=== PATIENT | male | born 1990 | race Caucasian/White ===

== ENCOUNTER 2019-05-17 11:03 | Emergency (ER) | payer OTHER, SELFPAY ==
--- NOTE | ~2019-05-17 | XR_ITS ---
EXAMINATION: XR chest 2V 05/17/2019 11:41 INDICATION: Cough with wheezing and fever PROCEDURE: 2 view chest COMPARISON: No prior studies for comparison. FINDINGS: The lungs are clear. The cardiomediastinal silhouette is within normal limits. There are no pleural effusions. There is no pneumothorax suspected. IMPRESSION: 1: NO ACUTE CARDIOPULMONARY DISEASE. Reviewed, dictated and finalized at location A. [employer]
[2019-05-17 11:13] VITALS: BP 125/76; PULSE 70; RESP 18; TEMP 37.4; O2SAT 98
--- NOTE | 2019-05-17 11:31 | ED.URI ---
HPI - URI/Sore Throat General Chief Complaint: Upper Respiratory Infection Stated Complaint: nausea/cough/sore throat/fever Time Seen by Provider: 05/17/19 11:24 Source: patient and RN notes reviewed Mode of arrival: ambulatory Limitations: no limitations History of Present Illness HPI Narrative: Patient presents today with a 2-day history of cough, wheezing, headache, congestion, fever up to 103. He had diarrhea for the first 2 days of his illness, but none since yesterday. Denies abdominal pain. Patient vomited 3 times this morning after drinking water. He has been taking NyQuil and Sudafed. Reports history of asthma as a child. Stopped vaping 2 weeks ago. MD elicited complaint: fever, cough and nasal congestion Related Data Allergies Allergy/AdvReac Type Severity Reaction Status Date / Time No Known Allergies Allergy Verified 05/17/19 11:05 Review of Systems Review of Systems: Narrative: CONSTITUTIONAL: Denies body aches, chills, or sweats.+ Fever EYES: Denies visual changes, redness, or discharge. ENT: Denies rhinorrhea, sore throat, or otalgia.+ Congestion CARDIOVASCULAR: Denies chest pain, palpitations, or edema. RESPIRATORY: Denies dyspnea.+ Cough, wheezing GASTROINTESTINAL: Denies abdominal pain, nausea. + Vomiting, diarrhea right GENITOURINARY: Denies dysuria or hematuria. SKIN: Denies rash, itching, or wounds. MUSCULOSKELETAL: Denies back pain, joint pain, or myalgia. NEUROLOGIC: Denies numbness, tingling, or weakness.+ Headache PSYCH: Denies depression or anxiety. PENDING SALE TO [facility] Social History Social History (Updated 05/17/19 @ 11:34 by Sirisha Nunez, [facility], ) Smoking status: Former smoker Tobacco type: e-cigarettes Gender identity (if verbalized by the patient): Male Comments At time of signature, I have reviewed and agree with nursing past medical, surgical, social and family history unless otherwise noted. Please see nursing chart for further information. There is no relevant family history pertinent to the presenting complaint Exam Narrative: Exam Narrative: GENERAL: Well-appearing, well-nourished, and in no acute distress. HEAD: Normocephalic, atraumatic. EYES: EOMI. No redness or drainage. Conjunctivae normal. ENT: Mucous membranes pink and moist. Nares clear. No rhinorrhea. TMs normal bilaterally. Throat normal. Uvula midline. NECK: Normal AROM. Supple. No lymphadenopathy. CHEST: No respiratory distress. Wheezing in the right upper and lower lobes, otherwise clear HEART: Regular rate and rhythm. No murmur appreciated. Normal peripheral pulses. ABDOMEN: Soft, nontender, nondistended, normal active bowel sounds. MUSCULOSKELETAL: No bony tenderness. EXTREMITIES: Normal range of motion. No edema. SKIN: Warm, dry, no rash. Generalized skin pallor NEURO: No focal deficits. Alert and oriented x3. Gait steady. PSYCH: Normal affect. No signs of depression or anxiety. Course Vital Signs Vital signs: Vital Signs Temperature 99.3 F 05/17/19 11:13 Pulse Rate 70 05/17/19 11:13 Respiratory Rate 18 05/17/19 11:13 Blood Pressure 125/76 05/17/19 11:13 Pulse Oximetry 98 05/17/19 11:13 Temperature 99.3 F 05/17/19 11:13 Pulse Rate 70 05/17/19 11:13 Respiratory Rate 18 05/17/19 11:13 Blood Pressure 125/76 05/17/19 11:13 Pulse Oximetry 98 05/17/19 11:13 Reviewed. Pt has been instructed to follow up with his PCP regarding his elevated blood pressure today. MDM - URI/Sore Throat Differential Diagnosis Differential diagnosis: Likely upper respiratory infection, otitis media, sinusitis, viral infection, bronchitis and other (Pneumonia) Lab Data Attestation: I reviewed the patient's lab results. Labs: Influenza A Screen Negative Reference Range: Negative Influenza B Screen Positive Reference Range: Negative Imaging Data Radiologist's impression: ITS Impressions Chest X-Ray 05/17/19 11:43 IMPRESSION:
== END 2019-05-17 12:13 | disposition home or self-care (01) ==
PROVIDERS: Emergency Provider Nurse Practitioner
DX: J11.1 Influenza due to unidentified influenza virus with other respiratory manifestations (principal)
CPT/HCPCS: 71046; 87804; 99213; G0463

== ENCOUNTER 2020-10-08 10:09 | Emergency (ER) | payer OTHER, SELFPAY ==
[2020-10-08 10:23] VITALS: BP 136/80; PULSE 65; RESP 18; TEMP 36.6; O2SAT 98
--- NOTE | 2020-10-08 10:30 | ED.SKABFB ---
HPI - Skin/Abscess/Foreign Bdy General Chief complaint: Skin/Abscess/Foreign Body Stated complaint: insect bites Time Seen by Provider: 10/08/20 10:31 Source: patient History of Present Illness HPI narrative: PATIENT STARTED A NEW JOB AND HAS STARTED TO WEAR UNIFORMS PROVIDED BY HIS EMPLOYER. PATIENT HAS BROKEN OUT IN A RASH IN AREAS WHERE HIS UNIFORM TOUCHES HIS SKIN. PATIENT REPORTS ITCHY RASH TO NECK BOTH ARMS AND ABDOMEN AREA UMBILICAL AREA VERY IRRITATED. HAS SPREAD TO HIS FOREHEAD NO RESP PROBLEMS. Related Data Allergies Allergy/AdvReac Type Severity Reaction Status Date / Time No Known Allergies Allergy Verified 05/17/19 11:05 Review of Systems Review of Systems: Narrative: CONSTITUTIONAL: Denies fever, chills, or sweats. EYES: Denies visual changes, redness, or discharge. ENT: Denies rhinorrhea, congestion, sore throat, or otalgia. CARDIOVASCULAR: Denies chest pain, palpitations, or edema. RESPIRATORY: Denies cough or dyspnea. GASTROINTESTINAL: Denies abdominal pain, nausea, vomiting, or diarrhea. GENITOURINARY: Denies dysuria or hematuria. SKIN:ITCHY RASH MUSCULOSKELETAL: Denies back pain, joint pain, or myalgia. NEUROLOGIC: Denies headache, numbness, or weakness. PSYCHIATRIC: Denies anxiety or depression. [facility] Social History Social History (Updated 05/17/19 @ 11:34 by Sirisha Nunez, [facility], ) Smoking status: Former smoker Tobacco type: e-cigarettes/vaping Gender identity (if verbalized by the patient): Male Comments At time of signature, agree with nursing past medical, surgical, social and family history. There is no relevant family history pertinent to the presenting complaint Exam Narrative: Exam Narrative: GENERAL: Well-appearing, well-nourished, and in no acute distress. HEAD: Normocephalic, atraumatic. EYES: PERRLA and EOMI. ENT: Nares clear, no rhinorrhea or epistaxis. Mucous membranes moist. NECK: Supple. CHEST: Clear to auscultation. No respiratory distress. HEART: Regular rate and rhythm. No murmur heard. Normal peripheral pulses. ABDOMEN: Soft, nontender, nondistended, normal active bowel sounds. EXTREMITIES: Normal range of motion. No edema. SKIN: Warm, dry, Contact dermatitis No induration fluctuance or drainage. No surrounding erythremia. No lesions and TTP. No specific pattern or dermatomal distribution. Several different stages with occasional scabbing and excoriation. Spares palms and soles. Findings consistent with contact dermatitis. NEURO: No focal deficits. Alert and oriented x3. Jonel Coma Scale Eye Opening: Spontaneous 4 Jonel Coma Scale Motor: Obeys Commands 6 Jonel Coma Scale Verbal: Oriented 5 [place] Coma Scale Total 15 Course Vital Signs Vital signs: Vital Signs Temperature 36.6 C 10/08/20 10:23 Pulse Rate 65 10/08/20 10:23 Respiratory Rate 18 10/08/20 10:23 Blood Pressure 136/80 10/08/20 10:23 Pulse Oximetry 98 10/08/20 10:23 Temperature 36.6 C 10/08/20 10:23 Pulse Rate 65 10/08/20 10:23 Respiratory Rate 18 10/08/20 10:23 Blood Pressure 136/80 10/08/20 10:23 Pulse Oximetry 98 10/08/20 10:23 Critical dx considered and discussed with pt. Educated patient on red flag s/s and to go to ED if s/s occur. Discussed with pt when to return to [facility] or primary care provider. Pt gave verbal undertstanding, all questions were answered, and pt was agreeable to plan Please GASTON schedule a followup visit with your personal physician for further evaluation and treatment. Including recheck and discussion of your blood pressure. If your symptoms persist, change or worsen significantly before you can contact your personal physician then please, without delay, go to the emergency department for further evaluation DISCUSSED EVALUATION AND TEST RESULTS IN THE [facility]. PATIENT/FAMILY UNDERSTAND IMPORTANCE OF CLOSE OBSERVATION AND RETURNING OR GOING TO THE EMERGENCY ROOM IF ANY WORSENING CONDITION. . MDM - Skin/Abscess
[2020-10-08] MEDS: methylPREDNISolone SOD SUCC 125 MG VIAL IM (10:40)
== END 2020-10-08 10:55 | disposition home or self-care (01) ==
PROVIDERS: Emergency Provider Nurse Practitioner Family; PCP Family Medicine Sports Medicine
DX: L25.9 Unspecified contact dermatitis, unspecified cause (principal)
CPT/HCPCS: 96372; 99213; G0463; J2930

== ENCOUNTER 2020-11-21 10:55 | Emergency (ER) | payer BC, OTHER, SELFPAY ==
[2020-11-21 11:08] VITALS: BP 137/76; PULSE 68; RESP 16; TEMP 36.8; O2SAT 100
--- NOTE | 2020-11-21 11:25 | ED.SKABFB ---
HPI - Skin/Abscess/Foreign Bdy General Chief complaint: Skin/Abscess/Foreign Body Stated complaint: rash Time Seen by Provider: 11/21/20 11:02 Source: patient and RN notes reviewed Limitations: no limitations History of Present Illness HPI narrative: The patient, previously mostly healthy, presents with skin eruption. Patient states he is here for second visit for skin eruption which is pink, raised, on his left upper extremity and now beginning to extend to his trunk and left lateral nose. He usually treat for contact dermatitis with mupirocin, antihistamines and a course of prednisone-he comments mupirocin is not working. No fever, abscess/induration, pimples Related Data Home Medications Medication Instructions Recorded Confirmed albuterol sulfate [Ventolin HFA] 2 puff INHALATION PRN PRN 10/08/20 11/21/20 fluticasone propionate [Flovent 2 puff INHALATION DAILY 10/08/20 11/21/20 HFA] montelukast 10 mg PO DAILY 10/08/20 11/21/20 Allergies Allergy/AdvReac Type Severity Reaction Status Date / Time No Known Allergies Allergy Verified 11/21/20 11:02 Review of Systems Review of Systems: General/Constitutional: No weight loss,fever Eyes: N0: Redness,discharge Ears/Nose/Throat: No: Epistaxis,ear discharge Respiratory: Denies: Hemoptysis Gastrointestinal: No Vomiting, Bleeding-rectal Skin: No Lumps, REPORTS eruption Neurologic: No Focal Weakness,Sz Hematologic: Denies: Petechiae/Purpura Psychiatric: No: Suicida ideationl All Other Systems: Reviewed and Negative PMFSH Social History Social History (Updated 05/17/19 @ 11:34 by Sirisha Nunez, [facility], ) Smoking status: Former smoker Tobacco type: e-cigarettes/vaping Gender identity (if verbalized by the patient): Male Comments At time of signature, agree with nursing past medical, surgical, social and family history. There is no relevant family history pertinent to the presenting complaint Exam Narrative: General Appearance: Well nourished; with garcia, earrings and pajama pants Eye: PERRLA, Conjunctiva clear Ear: External ear normal Nose: Normal nose, Nare clear, mild left infectious versus allergic periorbital edema Mouth/Throat: Normal appearing Neck Exam: Supple Respiratory: Airway patent, No respiratory distress Musculoskeletal: Moves all extremities, Non tender Skin: Warm, Dry ; macular micropapular blanching impetiginous eruption on the left elbow, trunk and face Neurological: A&O x3, Normal affect Course Vital Signs Vital signs: Vital Signs Temperature 98.3 F 11/21/20 11:08 Pulse Rate 68 11/21/20 11:08 Respiratory Rate 16 11/21/20 11:08 Blood Pressure 137/76 11/21/20 11:08 Pulse Oximetry 100 11/21/20 11:08 Temperature 98.3 F 11/21/20 11:08 Pulse Rate 68 11/21/20 11:08 Respiratory Rate 16 11/21/20 11:08 Blood Pressure 137/76 11/21/20 11:08 Pulse Oximetry 100 11/21/20 11:08 Discharge Plan Discharge Clinical Impression: Impetigo Patient Disposition: Home, Self-Care Condition: Stable Instructions: Impetigo (ED) Additional Instructions: Take clindamycin with food, antacid and/or probiotic; stop if diarrhea occurs Keep photo log of area; return if worsens per handout Prescriptions: New clindamycin HCl 300 mg capsule 300 mg PO TID Qty: 21 RF: 0 mupirocin 2 % ointment 1 applic TOPICAL TID Qty: 30 RF: 0 albuterol sulfate [Ventolin HFA] 90 mcg/actuation HFA aerosol inhaler 2 puff INHALATION QID PRN (Reason: shortness of breath or wheezing) Qty: 8.5 RF: 1 No Action Zyrtec 10 mg capsule 10 mg PO DAILY Qty: 14 RF: 0 montelukast 10 mg tablet 10 mg PO DAILY RF: 0 albuterol sulfate [Ventolin HFA] 90 mcg/actuation HFA aerosol inhaler 2 puff INHALATION PRN PRN (Reason: Shortness Of Breath Or Wheezing) RF: 0 Flovent HFA 110 mcg/actuation HFA aerosol inhaler 2 puff INHALATION DAILY RF: 0 Follow-up/Referrals: Rodger,Wu Escalante MD
== END 2020-11-21 11:32 | disposition home or self-care (01) ==
PROVIDERS: Emergency Provider Emergency Medicine; PCP Family Medicine Sports Medicine
DX: L01.00 Impetigo, unspecified (principal); Z87.891 Personal history of nicotine dependence
CPT/HCPCS: 99213; G0463

== ENCOUNTER 2021-03-31 10:30 | Emergency (ER) | payer OTHER, SELFPAY ==
[2021-03-31 10:55] VITALS: BP 133/93; PULSE 90; RESP 16; TEMP 37.4; O2SAT 98
[2021-03-31 10:56] VITALS: BP 133/93; PULSE 90; RESP 16; TEMP 37.4; O2SAT 98
--- NOTE | 2021-03-31 11:05 | ED.NAVMDI ---
HPI - Nausea/Vomiting/Diarrhea General Chief complaint: Nausea/Vomiting/Diarrhea Stated complaint: Nausea,Vomiting Time Seen by Provider: 03/31/21 11:05 Source: patient, RN notes reviewed and old records reviewed Mode of arrival: ambulatory Limitations: no limitations History of Present Illness HPI Narrative: 31-year-old male presents to the [facility] with complaints of vomiting for 3 days. States whenever he eats he vomits however denies any abdominal pain. Denies any fevers, chest pain, abdominal pain. First day he vomited twice. Has one time today. MD elicited complaint: vomiting Related Data Home Medications Medication Instructions Recorded Confirmed albuterol sulfate [Ventolin HFA] 2 puff INHALATION PRN PRN 10/08/20 03/31/21 fluticasone propionate [Flovent 2 puff INHALATION DAILY 10/08/20 03/31/21 HFA] Allergies Allergy/AdvReac Type Severity Reaction Status Date / Time No Known Allergies Allergy Verified 03/31/21 10:55 Review of Systems Review of Systems: All systems reviewed & are unremarkable except as noted in HPI and below Constitutional: Constitutional: Reports no additional constitutional complaints, Denies chills and Denies fever(s) Eyes: Eyes: Reports no additional eye complaints ENT: Reports system reviewed and no additional complaints, except as documented Cardiovascular: Cardiovascular: Reports no additional cardiovascular complaints Respiratory: Respiratory: Reports no additional respiratory complaints and Denies cough Gastrointestinal: Gastrointestinal: Reports as per HPI, Denies abdominal pain, Denies bloating, Denies constipation, Denies heartburn, Denies diarrhea, Reports nausea, Reports vomiting and Denies hematemesis Genitourinary: Genitourinary: Reports no additional male genitourinary complaints Musculoskeletal: Musculoskeletal: Reports no additional musculoskeletal complaints Integumentary/Breasts: Skin/Breast: Reports system reviewed and no additional complaints, except as docu Neurologic: Reports system reviewed and no additional complaints, except as documented Psychiatric: Psychiatric: Reports no additional psychiatric complaints Allergic/Immunologic: Allergic/Immunologic: Reports no additional allergic/immunologic complaints PMFSH Past Medical History Medical History (Updated 03/31/21 @ 11:17 by Maryjane Hernandez) Asthma Surgical History Surgical History (Updated 03/31/21 @ 11:12 by Maryjane Hernandez) No significant past surgical history Social History Social History (Updated 03/31/21 @ 11:12 by Maryjane Mantilla Smoking status: Current every day smoker Tobacco type: cigarettes and e-cigarettes/vaping Occupation/Education: occupation 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 There is no relevant family history pertinent to the patient complaint. Exam Const: General: healthy appearing, no acute distress and alert Nutritional Appearance: well nourished Orientation/consciousness: patient oriented x3 Limitations: no limitations HENMT: Head: normal to inspection Ears: external ears normal, TM's normal bilaterally and Abnormal EAC present Eyes: Pupils: Equal, round and reactive pupils present Neck: Neck: normal visual inspection, no lymphadenopathy and no meningeal signs Chest: Chest palpation & inspection: normal inspection of the chest Resp: Effort & Inspection: normal respiratory effort Auscultation: clear to auscultation bilaterally Cardio: Rate: regular rate Rhythm: regular rhythm GI: GI Palp: Yes Soft to palpation, No Tenderness to palpation present (GI), No Guarding due to palpation present (GI) and No Rigid due to palpation Percussion: Yes normal to percussion Auscultation: normal bowel sounds Back/Spine/Pelvis: Back: no CVA tenderness
== END 2021-03-31 11:18 | disposition home or self-care (01) ==
PROVIDERS: Emergency Provider Nurse Practitioner; PCP Family Medicine Sports Medicine
DX: K52.9 Noninfective gastroenteritis and colitis, unspecified (principal); J45.909 Unspecified asthma, uncomplicated; F17.210 Nicotine dependence, cigarettes, uncomplicated
CPT/HCPCS: 99213; G0463

== ENCOUNTER 2024-06-29 17:45 | Emergency (ER) | payer OTHER, SELFPAY ==
--- NOTE | 2024-06-29 17:56 | ED.WOUNDLAC ---
HPI - Wound/Laceration General Chief Complaint: Wound/Laceration Stated Complaint: RT Thumb Injury Time Seen by Provider: 06/29/24 18:00 Source: patient, RN notes reviewed and old records reviewed Mode of arrival: ambulatory Limitations: no limitations History of Present Illness HPI narrative: 34-year-old male presents to the [facility] with a laceration to the base of the right thumb. Sliced with a piece of sheet metal. Related Data Home Medications ?Medication ?Instructions ?Recorded ?Confirmed ?Last Taken ?Type albuterol sulfate 90 mcg/actuation 2 puff inhalation PRN PRN 10/08/20 03/31/21 Unknown History aerosol inhaler (Ventolin HFA) Shortness Of Breath Or Wheezing fluticasone propionate 110 2 puff inhalation DAILY 10/08/20 03/31/21 Unknown History mcg/actuation HFA aerosol inhaler (Flovent HFA) Allergies Allergy/AdvReac Type Severity Reaction Status Date / Time No Known Allergies Allergy Verified 06/29/24 17:49 Review of Systems Review of Systems: All systems reviewed & are unremarkable except as noted in HPI and below Constitutional: Constitutional: Reports no additional constitutional complaints ENT: Reports system reviewed and no additional complaints, except as documented Cardiovascular: Cardiovascular: Reports no additional cardiovascular complaints, Denies chest pain and Denies dyspnea Respiratory: Respiratory: Reports no additional respiratory complaints, Denies chest congestion, Denies cough and Denies dyspnea Musculoskeletal: Musculoskeletal: Reports no additional musculoskeletal complaints Integumentary/Breasts: Skin/Breast: Reports as per HPI REPLACED BY [facility] Past Medical History Medical History Asthma Surgical History Surgical History No significant past surgical history Social History Social History Smoking status: Current every day smoker Tobacco type: cigarettes and e-cigarettes/vaping Occupation/Education: occupation 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 There is no relevant family history pertinent to the patient complaint. Exam Const: General: cooperative, healthy appearing, comfortable, no acute distress, well developed, alert and well nourished Nutritional Appearance: well nourished Orientation/consciousness: patient oriented x3 Limitations: no limitations HENMT: Head: normal to inspection Eyes: General: appearance normal, both eyes and all related structures Alignment and Position: alignment normal Neck: Neck: normal visual inspection, full ROM, no lymphadenopathy and no meningeal signs Chest: Chest palpation & inspection: normal inspection of the chest Resp: Effort & Inspection: normal respiratory effort and able to speak in complete sentences Cardio: Rate: regular rate Skin: General skin exam: normal color and no rashes or lesions noted Wounds: wounds noted (Right thumb, flap of skin) Neuro: General: patient oriented x3, gait normal, moves all extremities and no meningeal signs Cognition (Neuro): normal cognition Speech: normal speech Gait exam (Neuro): Normal gait present Extrem: General: normal to inspection, full ROM, capillary refill normal and normal gait Hand/finger images:  1. Flap of skin, semi circular, full range of motion of the IP and MCP. Sensation intact and capillary refill under 2 seconds Psych: Appearance: grossly normal and well kempt Mental Status: mental status grossly normal Speech and movement: Normal speech and movement present and Clear speech present Affect: normal affect Attitude: cooperative Course Course Level of Care: [facility] Visit Vital Signs Vital signs: Vital Signs Temperature 98.0 F 06/29/24 17:58 Pulse Rate 85 06/29/24 17:58 Respiratory Rate 18 06/29/24 17:58 Blood Pressure 146/83 H 06/29/24 17:58 Pulse Oximetry 100 06/29/24 17:58 Oxygen Delivery Room Air 06/29/24 17:58 Temperature 98.0 F 06/29/24 17:58 Pulse Rate 85 06/29/24 17:58 Respiratory Rate 18 06/29/24 17:58 Blood Pressure 146/83 H 06/29/24 17:58 Pulse Oximetry 100 06/29/24 17:58 Oxygen Delivery Room Air 06/29/24 17:58 Reviewed Procedures Laceration Laceration 1: Date: 06/29/24 Time: 18:15 Site: hand Side (If applicable): right Size (cm): 2 Description: flap Depth: simple, single layer Local Anesthetic: lidocaine 1% Amount of anesthesia used (mL): 5 Pre-repair: wound explored and irrigated (200) ====== Skin Level ====== Skin layer closed with: nylon Size (cm): 5-0 Number of sutures: 5 Technique: simple, interrupted ====== Subcutaneous Layer ====== ====== Muscle Layer ====== ====== Tendon Layer ====== MDM - Wound/Laceration MDM Narrative Medical decision making narrative: Patient presents with a laceration to the right thumb. Bleeding is controlled. Updated tetanus. Patient thumb repaired 5 sutures placed Patient appropriate for outpatient treatment and follow-up Discharge instructions reviewed with patient, as well as provided in writing per nursing staff. The instructions also include specific and strict return/GO TO THE ER as well as f/u information. All questions have been answered, and the patient deny any further questions with discharge and discharge plan. Some parts of this dictation were generated by voice recognition software and may contain typographical and/or grammatical inaccuracies. Differential Diagnosis Differential diagnosis: Likely laceration, abrasion and avulsion of skin Critical Care Time Critical Care Time Critical Care Time: No Discharge Plan Discharge Clinical Impression: Laceration of thumb, Vaccine for [id number], combined Patient Disposition: Home, Self-Care Condition: Stable Instructions: Antibiotic Form, Finger Laceration (ED) Additional Instructions: Wash 2 to 3 times a day with warm soapy water, pat dry. Please keep covered when not at home. Try leaving open to air when at home for minimum of 4-5 hours per day. Take Tylenol per package instructions as needed for pain. It is recommended you start taking today Apply ice every 2-3 hours for 15-20 minutes while awake Follow-up with primary care provider in approximately 14 days for suture remove Patient Language: Belarusian Prescriptions: No Action Zyrtec 10 mg capsule 10 mg PO DAILY Qty: 14 0RF albuterol sulfate [Ventolin HFA] 90 mcg/actuation HFA aerosol inhaler 2 puff INHALATION PRN PRN (Reason: Shortness Of Breath Or Wheezing) Flovent HFA 110 mcg/actuation HFA aerosol inhaler 2 puff INHALATION DAILY ondansetron 4 mg tablet,disintegrating 4 mg PO Q8H PRN (Reason: nausea and vomiting) Qty: 10 0RF Follow-up/Referrals: Rodger,Wu Escalante MD [Primary Care Provider] [facility] pressure check 146/83, suture removed) Stand Alone Forms: Work/School Release IP Time of Disposition: 18:28
[2024-06-29 17:58] VITALS: BP 146/83; PULSE 85; RESP 18; TEMP 36.7; O2SAT 100
[2024-06-29] MEDS: TETANUS,DIPHTHERIA,AC PERTUSSIS ADULT (0.5 ML) BOOSTRIX IM (18:10)
--- OUTSIDE RECORDS SUMMARY | 2024-06-29 19:06 | XMS_ITS | Clinical Summary ---
Author Organization [facility] Address [address] [place] [address] Care Team Providers Care Marketing Operations Consultant Name Role Phone Wu Soares MD Primary Care Provider Allergies Active Allergy Reactions Criticality Noted Date Comments [place] Swelling 05/10/2022 Medications albuterol (PROVENTIL) (2.5 MG/3ML) 0.083% nebulizer solutionIndication s:Mild persistent asthma without complication (HHS/HCC) INHALE 3 ML BY NEBULIZATION EVERY 6 HOURS NEEDED FOR WHEEZING OR SHORTNESS OF BREATH 300 mL 1 04/29/19 25 Active albuterol sulfate HFA 108 (90 Base) MCG/ACT inhalerIndications :Mild persistent asthma without complication (HHS/HCC) TAKE 2 PUFFS BY MOUTH EVERY 6 HOURS NEEDED FOR WHEEZE OR SHORTNESS OF BREATH 18 g 2 05/26/19 25 Active budesonide-formote rol (SYMBICORT) 160-4.5 MCG/ACT inhalerIndications :Mild persistent asthma without complication (HHS/HCC) Inhale 2 puffs into the lungs 2 (two) times daily. 10.2 g 1 05/26/19 25 Active ondansetron (ZOFRAN-ODT) 4 MG disintegrating tablet Take 1 tablet (4 mg total) by mouth every 8 (eight) hours as needed for Nausea. 20 tablet 06/20/19 25 Active Active Problems Problem Noted Date Diagnosed Date Mild persistent asthma without complication (HHS /HCC) 07/28/2020 Seasonal allergies 07/28/2020 Encounters Date Type Department Care Team Description 06/19/2024 9:30 AM MANAGER SOLAR - 06/19/2024 1:53 PM [facility] Emergency [facility] Emergency Room [id number] [place] [address] [id number] Gregory Reveles MD Abdominal Pain Discharge Disposition: Home or Self Care (Routine Discharge) 06/19/2024 Travel 06/16/2024 3:40 PM MANAGER SOLAR Office Visit [facility] Medicine [address] [phone] Wu Soares MD Follow Up; Asthma; Breathing Problem (Pt states it hurts when he takes deep breath ); Chest Pain (Pt states he gets chest pain right under her ribs ) 06/16/2024 Travel 05/26/2024 9:20 AM MANAGER SOLAR Office Visit [facility] Internal [address] [phone] Franklin Biswas MD Asthma (Follow up out of inhaler and having SOB has albuterol lois pt has asthma) 05/26/2024 Travel from Last 3 Months Immunizations Name Administration Dates Next Due Tdap (Adacel) 09/24/2016 Family History Medical History Relation Comments Cancer Father Heart Attack Maternal Grandfather Heart Disease Maternal Grandfather Lung Disease Paternal Grandfather Relation Status Comments Father Alive Maternal Grandfather Maternal Grandmother Alive Mother Alive Paternal Grandfather Paternal Grandmother Social History Tobacco Use Types Packs/Day Years Used Date Smoking Tobacco: Former Smokeless Tobacco: Never Tobacco Cessation:Counseling Given: No Alcohol Use Standard Drinks/Week Comments Yes 0 (1 standard drink = 0.6 oz pur e alcohol) socially PHQ-2 Answer Date Recorded Patient Health Questionnaire-2 Score 0 05/26/2024 Sex and Gender Information Value Date Recorded Sex Assigned at Male 05/26/2024 9:20 AM MANAGER SOLAR Legal Sex Male 7:46 PM CDT Gender Identity Male 05/26/2024 9:31 AM MANAGER SOLAR Sexual Orientation Straight 05/26/2024 9: 31 AM MANAGER SOLAR Last Filed Vital Signs Vital Sign Reading Time Taken Comments Blood Pressure 119/72 06/19/2024 11:30 AM MANAGER SOLAR Pulse 56 06/19/2024 11:30 AM MANAGER SOLAR Temperature 37.2 C (98.9 F) 06/19/2024 9:45 AM MANAGER SOLAR Respiratory Rate 18 06/19/2024 11:30 AM MANAGER SOLAR Oxygen Saturation 97% 06/19/2024 11:30 AM MANAGER SOLAR Inhaled Oxygen Concentration - - Weight 92.1 kg (203 lb) 06/19/2024 9:44 AM MANAGER SOLAR Height 188 cm (6' 2 ) 06/19/2024 9:44 AM MANAGER SOLAR Body Mass Index 26.06 06/19/2024 9:44 AM MANAGER SOLAR Plan of Treatment Upcoming Encounters Date Type Department Care Team (Late st Contact Info) Description 07/02/2024 2:40 PM CDT Office Visit [facility] [address] [place] [address] Wu Soares MD [address] [place] [address] 12/17/2024 3:40 PM CDT Office Visit [facility] [id number] [place] [phone] Wu Soares MD [address] [place] [address] Health Maintenance Due Date Last Done Comments Pneumococcal Vaccine: Pediat rics (0 to 5 Years) and At-Risk Patients (6 to 64 Years) (1 of 2 - PCV) 1994 Hepatitis C 2006 Hepatitis B Vaccines (1 of 3 - 19+ 3-dose series) 2007 Annual Physical 04/28/2021 04/28/2020 COVID-19 Vaccine ( - 2023-2 5 season) 2025 Postponed from 12/14 (Patient Refused) Influenza Adult (#1) 2025 Postpon ed from 01/14/2024 (Patient Refused) DTaP, Tdap and Td Vaccines ( 2 - Td or Tdap) 09/24/2026 09/24/2016 PHQ-2 (Physician [place]) Completed 05/26/2024 HPV Vaccines Aged Out No longer eligi ble based on patient's age to complete this topic Meningococcal B Vaccine Aged Out No l onger eligible based on patient's age to complete this topic Meningococcal Vaccine Aged Out No norma jareth eligible based on patient's age to complete this topic RSV Immunizations Under 20 Months Aged Out No longer eligible based on patient's age to complete this topic Procedures Procedure Name Priority Date/Time Associated Diagnosis Comments US ABD LIMITED STAT 06/19/2024 12:[address] ABD+PEL W CON STAT 06/19/2024 10:5 1 AM MANAGER SOLAR XR CHEST PORTABLE STAT 06/19/2024 10: 50 AM MANAGER SOLAR LIPASE STAT 06/19/2024 9:51 AM MANAGER SOLAR TROPONIN, QUANT STAT 06/19/2024 9:51 AM MANAGER SOLAR COMPREHENSIVE METABOLIC PANEL STAT 06/19/2024 9:51 AM MANAGER SOLAR CBC W/DIFF AUTOMATED STAT 06/19/2024 9:51 AM MANAGER SOLAR ECG 12-LEAD Routine 06/19/2024 9:46 AM MANAGER SOLAR from Last 3 Months Results * US ABD LIMITED (06/19/2024 12:46 PM MANAGER SOLAR) Anatomical Region Laterality Modality Abdomen Ultrasound 06/19/2024 12:5 5 PM MANAGER SOLAR Impressions 06/19/2024 1:03 PM MANAGER SOLAR IMPRESSION: 1. No sonographic abnormality observed within the right upper quadrant. Referred By: Interpreted By: Rajani Lynn DO, 06/19/2024 12:55 PM Narrative 06/19/2024 1:03 PM MANAGER SOLAR [facility] [address] [place] [address] EXAMINATION: LIMITED ABDOMINAL ULTRASOUND: RIGHT UPPER QUADRANT. CLINICAL INDICATION: 34-year-old male. Reason for examination: Right upper quadrant pain. The patient reports right upper quadrant pain times several months with nausea vomiting and diarrhea. TECHNIQUE: Ultrasound examination of the right upper quadrant was performed to assess grayscale appearance, color flow characteristics and spectral Doppler analysis. COMPARISON: No previous right upper quadrant ultrasound. Contrast-enhanced CT abdomen and pelvis today at 10:44 FINDINGS: Liver: Normal echogenicity. No intrahepatic ductal dilatation. No intrahepatic masses. The liver measures within normal limits of size at 16.4 cm. Pancreas: The visualized portion of the pancreas was unremarkable Portal vein: Spectral analysis reveals normal hepatopedal flow. Hepatic veins and IVC normal antegrade flow and waveform and velocity. Gallbladder: No gallbladder wall thickening measured at 3 mm. The gallbladder is within normal limits of size measuring 7.2 x 2.3 x 3.0 cm. No gallstones or sludge. No pericholecystic fluid. Negative sonographic Gregorio sign. Distal common bile duct: 2.9 mm. No distinct intraluminal stone. Common hepatic duct: Not visualized due to overlying bowel gas. Right kidney: Measures 11.2 x 4.6 x 5.5 cm. Normal echogenicity. Normal cortical perfusion. Normal cortical width measured at 1.5 cm. No masses or cysts or stones or hydronephrosis. Other findings: No ascites in the right upper quadrant. Procedure Note Rajani Lynn MD - 06/19/2024 [facility] [address] [facility]. [place] [id number] EXAMINATION: LIMITED ABDOMINAL ULTRASOUND: RIGHT UPPER QUADRANT. CLINICAL INDICATION: 34-year-old male. Reason for examination: Right upper quadrant pain. The patient reports right upper quadrant pain times several months withnausea vomiting and diarrhea. TECHNIQUE: Ultrasound examination of the right upper quadrant was performed to assessgrayscale appearance, color flow characteristics and spectral Doppleranalysis. COMPARISON: No previous right upper quadrant ultrasound. Contrast-enhanced CT abdomenand pelvis today at 10:44 FINDINGS: Liver: Normal echogenicity. No intrahepatic ductal dilatation. Nointrahepatic masses. The liver measures within normal limits of size at16.4 cm. Pancreas: The visualized portion of the pancreas was unremarkable Portal vein: Spectral analysis reveals normal hepatopedal flow. Hepatic veins and IVC normal antegrade flow and waveform and velocity. Gallbladder: No gallbladder wall thickening measured at 3 mm. Thegallbladder is within normal limits of size measuring 7.2 x 2.3 x 3.0 cm.No gallstones or sludge. No pericholecystic fluid. Negative sonographic Gregorio sign. Distal common bile duct: 2.9 mm. No distinct intraluminal stone. Common hepatic duct: Not visualized due to overlying bowel gas. Right kidney: Measures 11.2 x 4.6 x 5.5 cm. Normal echogenicity. Normalcortical perfusion. Normal cortical width measured at 1.5 cm. No massesor cysts or stones or hydronephrosis. Other findings: No ascites in the right upper quadrant. IMPRESSION: 1. No sonographic abnormality observed within the right upper quadrant. Referred By: Interpreted By: Rajani Lynn DO, 06/19/2024 12:55 PM us Gregory Reveles MD ULTRASOUND Final Result * CT ABD+PEL W IV CON ONLY (06/19/2024 10:51 AM MANAGER SOLAR) Anatomical Region Laterality Modality Abdomen Computed Tomogra phy 06/19/2024 11:0 2 AM MANAGER SOLAR Impressions 06/19/2024 11:07 AM MANAGER SOLAR IMPRESSION: Colonic wall thickening is present in the transverse colon, splenic flexure as well as the sigmoid colon. This can be secondary due to inflammatory or infectious change. 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 Ordered By: GREGORY REVELES Interpreted By: Silverio Jang MD, 06/19/2024 11:02 AM Narrative 06/19/2024 11:07 AM MANAGER SOLAR [facility] [address] [place] [address] Procedure(s): CT ABD+PEL W CON Date of service: 06/19/2024 10:35 AM Provided clinical information: 34 years, Male, RUQ and epigastric pain Procedure and materials: Helical images of the abdomen and pelvis are obtained from superior to the diaphragm to inferior to the pubic symphysis. 75 mL Isovue-370. A dose lowering technique was used for this procedure, which may include, but is not limited to, dose reduction technique, automated exposure control, iterative reconstruction, ALARA (As Low As Reasonably Achievable), or Image Gently techniques. Comparison studies: None. Findings: CT abdomen and pelvis: Lung Bases: No pleural effusions or consolidations. Adrenals:Unremarkable. Spleen:No splenomegaly. Gallbladder and Biliary system:No CT evidence of cholelithiasis. No biliary ductal dilatation. Pancreas:Unremarkable. Liver:Unremarkable. Kidneys:Unremarkable. Bowel:Colonic wall thickening is present in the sigmoid colon. This can be due to inflammatory or infectious change. Thickening is present in the transverse colon and splenic flecture. Moderate amount of fecal material in ascending colon. Appendix is unremarkable. Small bowel is unremarkable. Aorta and Retroperitoneum:No enlarged lymph nodes. Aorta is not aneurysmal. Pelvic Organs:Urinary bladder is unremarkable. Prostate is not enlarged. Bone/Musculoskeletal: There is a pars defect present on the left at L5. Loss height of the disc space is present at L5-S1. Free fluid: None Procedure Note Silverio Jang MD - 06/19/2024 [facility] [address] [place] [address] Procedure(s): CT ABD+PEL W CON Date of service: 06/19/2024 10:35 AM Provided clinical information: 34 years, Male, RUQ and epigastric pain Procedure and materials: Helical images of the abdomen and pelvis areobtained from superior to the diaphragm to inferior to the pubicsymphysis. 75 mL Isovue-370. A dose lowering technique was used for this procedure, which may include,but is not limited to, dose reduction technique, automated exposurecontrol, iterative reconstruction, ALARA (As Low As ReasonablyAchievable), or Image Gently techniques. Comparison studies: None. Findings: CT abdomen and pelvis: Lung Bases: No pleural effusions or consolidations. Adrenals:Unremarkable. Spleen:No splenomegaly. Gallbladder and Biliary system:No CT evidence of cholelithiasis. Nobiliary ductal dilatation. Pancreas:Unremarkable. Liver:Unremarkable. Kidneys:Unremarkable. Bowel:Colonic wall thickening is present in the sigmoid colon. This can bedue to inflammatory or infectious change. Thickening is present in thetransverse colon and splenic flecture. Moderate amount of fecal materialin ascending colon. Appendix is unremarkable. Small bowel is unremarkable. Aorta and Retroperitoneum:No enlarged lymph nodes. Aorta is notaneurysmal. Pelvic Organs:Urinary bladder is unremarkable. Prostate is not enlarged. Bone/Musculoskeletal: There is a pars defect present on the left at L5.Loss height of the disc space is present at L5-S1. Free fluid: None IMPRESSION: Colonic wall thickening is present in the transverse colon, splenicflexure as well as the sigmoid colon. This can be secondary due toinflammatory or infectious change. 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 Ordered By: GREGORY REVELES Interpreted By: Silverio Jang MD, 06/19/2024 11:02 AM Gregory Reveles MD CT Final Result * XR CHEST PORTABLE (06/19/2024 10:50 AM MANAGER SOLAR) Anatomical Region Laterality Modality Chest Radiographic Lesley ging 06/19/2024 10:5 9 AM MANAGER SOLAR Impressions 06/19/2024 11:00 AM MANAGER SOLAR IMPRESSION: No acute cardiopulmonary abnormality. Ordered By: GREGORY REVELES Interpreted By: Silverio Jang MD, 06/19/2024 10:59 AM Narrative 06/19/2024 11:00 AM MANAGER SOLAR [facility] [address] [place] [address] Procedure(s): XR CHEST PORTABLE Date of service: 06/19/2024 10:36 AM Provided clinical information: 34 years, Male, chest pain Procedure and materials: AP portable Comparison studies: None. FINDINGS: Cardiac silhouette is within normal limits. The lungs expanded clear of any consolidations. No effusions. Procedure Note Silverio Jang MD - 06/19/2024 [facility] [address] [place] [address] Procedure(s): XR CHEST PORTABLE Date of service: 06/19/2024 10:36 AM Provided clinical information: 34 years, Male, chest pain Procedure and materials: AP portable Comparison studies: None. FINDINGS: Cardiac silhouette is within normal limits. The lungs expandedclear of any consolidations. No effusions. IMPRESSION: No acute cardiopulmonary abnormality. Ordered By: GREGORY REVELES Interpreted By: Silverio Jang MD, 06/19/2024 10:59 AM us Gregory Reveles MD GENERAL IMAGING Final Result * (ABNORMAL) COMPREHENSIVE METABOLIC PANEL (06/19/2024 9:51 AM MANAGER SOLAR) GLUCOSE 101(H) 70 - 99 MG/DL 06/19/2024 10:11 [facility] BUN 19(H) 7 - 18 MG/DL 06/19/2024 10:11 [facility] CREATININE S/P/B 1.06 0.7 - 1.3 MG/DL 06/19/2024 10:11 AM [facility] SODIUM S/P/B 137 136 - 145 MMOL/L 06/19/2024 10:11 AM [facility] POTASSIUM S/P/B 4.5 3.5 - 5.1 MMOL/L 06/19/2024 10:11 AM [facility] CHLORIDE S/P/B 103 100 - 108 MMOL/L 06/19/2024 10:11 AM [facility] CO2 25.2 21 - 32 MMOL/L 06/19/2024 10:11 AM [facility] CALCIUM S/P/B 9.2 8.5 - 10.1 MG/DL 06/19/2024 10:11 AM [facility] BILIRUBIN TOTAL S/P/B 0.4 0.2 - 1.2 MG/DL 06/19/2024 10:11 AM [facility] TOTAL PROTEIN S/P/B 7.1 6.4 - 8.2 G/DL 06/19/2024 10:11 AM [facility] ALBUMIN S/P/B 4.1 3.4 - 5.0 G/DL 06/19/2024 10:11 AM [facility] AST 26 15 - 37 U/L 06/19/2024 10:11 AM [facility] ALT 47 16 - 60 U/L 06/19/2024 10:11 AM [facility] ALKALINE PHOSPHATASE S/P/B 90 50 - 136 U/L 06/19/2024 10:11 AM [facility] ANION GAP 8.8 5 - 15 MMOL/L 06/19/2024 10:11 AM [facility] BUN CREATININE RATIO 17.9 6 - 26 06/19/2024 10:11 AM [facility] A/G RATIO 1.4 1.0 - 2.0 RATIO 06/19/2024 10:11 AM [facility] GFR ESTIMATE >90 >90 ML/MIN/1.7 3 M2 06/19/2024 10:11 AM [facility] Comment: NOTE: eGFR is not calculated for patients <18 years of age. This is an estimated GFR calculation using the new CKD EPI creatinine equation without race and so does not require a correction factor for race. This estimated GFR should not be used for calculating drug doses. 06/19/2024 9:51 AM MANAGER SOLAR us Gregory Reveles MD LABORATORY Final Result [facility] [address] [place] [address], [place] [phone] * (ABNORMAL) CBC W/DIFF AUTOMATED (06/19/2024 9:51 AM MANAGER SOLAR) [facility] Signature WBC 6.93 4.4 - 11.0 x10'3/uL 06/19/2024 9:57 AM [facility] RBC 4.95 4.50 - 5.90 x10'6/uL 06/19/2024 9:57 AM [facility] HGB 14.9 14.0 - 17.5 G/DL 06/19/2024 9:57 AM [facility] HCT 43.0 41.5 - 50.4 % 06/19/2024 9:57 AM [facility] MCV 86.9 80.0 - 96.0 FL 06/19/2024 9:57 AM [facility] MCH 30.1 26.5 - 31.4 PG 06/19/2024 9:57 AM [facility] MCHC 34.7 31.9 - 34.8 G/DL 06/19/2024 9:57 AM [facility] RDW 11.8(L) 12.3 - 14.3 % 06/19/2024 9:57 AM [facility] PLT 253 151 - 353 x10'3/uL 06/19/2024 9:57 AM [facility] MPV 9.0(L) 9.7 - 11.9 FL 06/19/2024 9:57 AM [facility] RBC MORPHOLOGY NORMAL 06/19/2024 9:57 AM [facility] PLT MORPH. NORMAL 06/19/2024 9:57 AM [facility] WBC MORPHOLOGY NORMAL 06/19/2024 9:57 AM [facility] LYMPHOCYTES % 21.9 15.8 - 45.0 % 06/19/2024 9:57 AM [facility] NEUTROPHILS % 68.6 42.1 - 71.9 % 06/19/2024 9:57 AM [facility] MONOCYTES % 6.9 5.7 - 12.5 % 06/19/2024 9:57 AM [facility] EOSINOPHILS 1.6 0.0 - 5.6 % 06/19/2024 9:57 AM [facility] BASOPHILS 0.7 0.0 - 1.3 % 06/19/2024 9:57 AM [facility] ABS. NEUTROPHILS 4.75 1.40 - 6.00 x10'3/uL 06/19/2024 9:57 AM [facility] IMMATURE GRANS % 0.3 0.0 - 0.5 % 06/19/2024 9:57 AM [facility] ABS. LYMPHOCYTES 1.52 0.80 - 4.70 x10'3/uL 06/19/2024 9:57 [facility] 06/19/2024 9:51 AM MANAGER SOLAR Gregory Reveles MD LABORATORY Final Result [facility] [address] [place] [address], * TROPONIN, QUANT (06/19/2024 9:51 AM MANAGER SOLAR) Pathologist [facility] TROPONIN I HIGH SENSITIVITY 5 0 - 75 ng/L 06/19/2024 10:14 AM [facility] Comment: HIGH DOSES OF BIOTIN, TROPONIN-SPECIFIC AUTOANTIBODIES, AND ANTIBODY THERAPY CONTAINING HAMA MAY INTERFERE WITH THIS TEST RESULT. CORRELATION TO CLINICAL HISTORY AND PRESENTATION RECOMMENDED. 06/19/2024 9:51 AM MANAGER SOLAR Gregory Reveles MD LABORATORY Final Result Performing Organization Address City/[facility]/ZIP Co de Phone Number [facility] [address] [place] [address], * LIPASE (06/19/2024 9:51 AM MANAGER SOLAR) LIPASE 34 16 - 77 UNITS/L 06/19/2024 10:11 AM MANAGER SOLAR [facility] 06/19/2024 9:51 AM MANAGER SOLAR Gregory Reveles MD LABORATORY Final Result Performing Organization Address [facility] Co de Phone Number [facility] [address] [place] [address], [place] [phone] * ECG 12 lead (06/19/2024 9:46 AM MANAGER SOLAR) 06/19/2024 9:46 AM MANAGER SOLAR Narrative [facility] RAD - 06/20/2024 8:15 AM MANAGER SOLAR [facility] Test Date: 2024-06-19 Pat Name: BRYCE IBRAHIM Department: 85 Room: [place] [address] Gender: Male Final Touch Up Painter: : 1990 Requested By: GREGORY REVELES Order Number: [id number] Reading MD: Tony Goldstein Measurements Intervals [place] Rate: 60 P: -51 MD: 170 QRS: 80 QRSD: 95 T: 21 QT: 373 QTc: 373 Interpretive Statements ECTOPIC ATRIAL RHYTHM INCOMPLETE RIGHT BUNDLE BRANCH BLOCK [90+ ms QRS DURATION, TERMINAL R IN V1/V2, 40+ ms S IN I/aVL/V4/V5/V6] ABNORMAL RHYTHM ECG No previous ECG available for comparison GER SOLAR Procedure Note Tony Goldstein MD - 06/20/2024 [facility] Test Date: 2024-06-19 Pat Name: BRYCE IBRAHIM Department: 85 Room: [place] [address] Gender: Male Final Touch Up Painter: : 1990 Requested By: GREGORY REVELES Order Number: [id number] Reading MD: Tony Goldstein Measurements Intervals [place] Rate: 60 P: -51 MD: 170 QRS: 80 QRSD: 95 T: 21 QT: 373 QTc: 373 Interpretive Statements ECTOPIC ATRIAL RHYTHM INCOMPLETE RIGHT BUNDLE BRANCH BLOCK [90+ ms QRS DURATION, TERMINAL RIN V1/V2, 40+ ms S IN I/aVL/V4/V5/V6] ABNORMAL RHYTHM ECG No previous ECG available for comparison GER SOLAR us Gregory Reveles MD ECG ORDERABLES Final Result [facility] RAD from Last 3 Months Insurance [employer] Care Teams Marketing Operations Consultant Relationship Specialty Start Date End Date Wu Soares MD [address] [place] [address] PCP - General FAMILY PRACTICE 04/28/20
== END 2024-06-29 18:30 | disposition home or self-care (01) ==
PROVIDERS: Emergency Provider Nurse Practitioner; PCP Family Medicine Sports Medicine
DX: S61.011A Laceration without foreign body of right thumb without damage to nail, initial encounter (principal); W26.8XXA Contact with other sharp object(s), not elsewhere classified, initial encounter; Z23 Encounter for immunization; J45.909 Unspecified asthma, uncomplicated; F17.210 Nicotine dependence, cigarettes, uncomplicated; F17.290 Nicotine dependence, other tobacco product, uncomplicated
CPT/HCPCS: 12001; 90471; 90715; 99212; G0463; J2003

== ENCOUNTER 2024-07-11 08:10 | Emergency (ER) | payer OTHER, SELFPAY ==
--- NOTE | ~2024-07-11 | XR_ITS ---
EXAMINATION: XR finger 1st RT min 2V DATE: 07/11/2024 08:37 INDICATION: Right thumb infection. TECHNIQUE: 4 views of right thumb were obtained. COMPARISON: None. FINDINGS: Alignment is normal. No fracture. Joint spaces are normal. IMPRESSION: 1. No evidence of osteomyelitis. Reviewed, dictated and finalized at location A.
--- OUTSIDE RECORDS SUMMARY | 2024-07-11 08:12 | XMS_ITS | Clinical Summary ---
Author Organization [facility] Address [facility] [place] [address] Care Team Providers Care Textile Pin Worker Name Role Phone Wu Soares MD Primary Care Provider [phone] Allergies Active Allergy Reactions Criticality Noted Date Comments [place] Swelling 05/10/2022 Medications albuterol (PROVENTIL) (2.5 MG/3ML) [...] Encounters Date Type Department Care Team Description 07/10/2024 Telephone [facility] General Surgery [address], [address] [place] [address] Jaylin Lund MD Information 07/02/2024 2:40 PM CDT Office Visit [facility] [address] [address] Wu Soares MD ER F/U (Abdominal pain ) 07/02/2024 Travel 06/19/2024 9:30 AM TREATING INSPECTOR - 06/19/2024 1:53 PM TREATING INSPECTOR Emergency [facility] Emergency Room [address] [place], [place] [id number] Douglas Reveles MD Abdominal Pain Discharge Disposition: Home or Self Care (Routine Discharge) 06/19/2024 Travel 06/16/2024 3:40 PM TREATING INSPECTOR Office Visit [facility] [address] [address] Wu Soares MD Follow Up; Asthma; Breathing Problem (Pt states it hurts when he takes deep breath ); Chest Pain (Pt states he gets chest pain right under her ribs ) 06/16/2024 Travel 05/26/2024 9:20 AM TREATING INSPECTOR Office Visit [facility] Internal [address] [address] Franklin Biswas MD Asthma (Follow [...] Sex Assigned at Male 05/26/2024 9:20 AM TREATING INSPECTOR Legal Sex Male 7:46 PM CDT Gender Identity Male 05/26/2024 9:31 AM TREATING INSPECTOR Sexual Orientation Straight 05/26/2024 9: 31 AM TREATING INSPECTOR Last Filed Vital Signs Vital Sign Reading Time Taken Comments Blood Pressure 116/74 07/02/2024 2:57 PM CDT Pulse 66 07/02/2024 2:57 PM CDT Temperature 36.8 C (98.3 F) 07/02/2024 2:57 PM CDT Respiratory Rate 16 07/02/2024 2:57 PM CDT Oxygen Saturation 98% 07/02/2024 2:57 PM CDT Inhaled Oxygen Concentration - - Weight 93 kg (205 lb) 07/02/2024 2:57 PM CDT Height 188 cm (6' 2 ) 07/02/2024 2:57 PM CDT Body Mass Index 26.32 07/02/2024 2:57 PM CDT Plan of Treatment Upcoming Encounters Date Type Department Care Team (Late st Contact Info) Description 08/12/2024 4:20 PM CDT Office Visit [facility] General Surgery [facility] [address] [facility], [address] [place] [address] Jaylin Lund MD [address] [facility] [address] [place], [place] [id number] 08/25/2024 2:30 PM CDT Appointment [facility] [address] [place] [phone] Wu Soares MD [address] [facility] [address] [place], [place] [phone] 12/17/2024 3:40 PM CDT Office Visit [facility] Medicine [facility] [address] [place] [address] Wu Soares MD [address] [facility] [address] [place], [place] [phone] Health Maintenance Due Date Last Done Comments Pneumococcal Vaccine: Pediat rics (0 to 5 Years) and At-Risk Patients (6 to 64 Years) (1 of 2 - PCV) 1994 Hepatitis C 2006 Hepatitis B Vaccines (1 of 3 - 19+ 3-dose series) 2007 Annual Physical 04/28/2021 04/28/2020 COVID-19 Vaccine (1 - 2023-2 5 season) 2025 Postponed from 12/14 (Patient Refused) DTaP, Tdap and Td Vaccines ( 2 - Td or Tdap) 09/24/2026 09/24/2016 PHQ-2 (Physician [place]) Completed 05/26/2024 HPV Vaccines Aged Out No [...] US ABD LIMITED STAT 06/19/2024 12:[address] ABD+PEL W CON STAT 06/19/2024 10:5 1 AM TREATING INSPECTOR XR CHEST PORTABLE STAT 06/19/2024 10: 50 AM TREATING INSPECTOR LIPASE STAT 06/19/2024 9:51 AM TREATING INSPECTOR TROPONIN, QUANT STAT 06/19/2024 9:51 AM TREATING INSPECTOR COMPREHENSIVE METABOLIC PANEL STAT 06/19/2024 9:51 AM TREATING INSPECTOR CBC W/DIFF AUTOMATED STAT 06/19/2024 9:51 AM TREATING INSPECTOR ECG 12-LEAD Routine 06/19/2024 9:46 AM TREATING INSPECTOR from Last 3 Months Results * US ABD LIMITED (06/19/2024 12:46 PM TREATING INSPECTOR) Anatomical Region Laterality Modality Abdomen Ultrasound 06/19/2024 12:5 5 PM TREATING INSPECTOR Impressions 06/19/2024 1:03 PM TREATING INSPECTOR IMPRESSION: 1. No sonographic abnormality observed within the right upper quadrant. Referred By: Interpreted By: Rajani Lynn DO, 06/19/2024 12:55 PM Narrative 06/19/2024 1:03 PM TREATING INSPECTOR [facility] [address] [place] [address] EXAMINATION: LIMITED ABDOMINAL ULTRASOUND: RIGHT UPPER QUADRANT. [...] Procedure Note Rajani Lynn MD - 06/19/2024 [facility] [address] [place] [address] EXAMINATION: LIMITED ABDOMINAL ULTRASOUND: RIGHT UPPER QUADRANT. [...] Rajani Lynn DO, 06/19/2024 12:55 PM us Douglas Reveles MD ULTRASOUND Final Result * CT ABD+PEL W IV CON ONLY (06/19/2024 10:51 AM TREATING INSPECTOR) Anatomical Region Laterality Modality Abdomen Computed Tomogra phy 06/19/2024 11:0 2 AM TREATING INSPECTOR Impressions 06/19/2024 11:07 AM TREATING INSPECTOR IMPRESSION: Colonic wall thickening is present in the transverse colon, splenic flexure as well as the sigmoid colon. This can be secondary due to inflammatory or infectious change. 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 Ordered By: DOUGLAS REVELES Interpreted By: Silverio Jang MD, 06/19/2024 11:02 AM Narrative 06/19/2024 11:07 AM TREATING INSPECTOR [facility] [address] [place] [address] Procedure(s): CT ABD+PEL W CON Date of [...] Procedure Note Silverio Jang MD - 06/19/2024 [facility] [address] [place] [id number] Procedure(s): CT ABD+PEL W CON Date of [...] loss heightof the disc space. Ordered By: DOUGLAS REVELES Interpreted By: Silverio Jang MD, 06/19/2024 11:02 AM us Douglas Reveles MD CT Final Result * XR CHEST PORTABLE (06/19/2024 10:50 AM TREATING INSPECTOR) Anatomical Region Laterality Modality Chest Radiographic Lesley ging 06/19/2024 10:5 9 AM TREATING INSPECTOR Impressions 06/19/2024 11:00 AM TREATING INSPECTOR IMPRESSION: No acute cardiopulmonary abnormality. Ordered By: DOUGLAS REVELES Interpreted By: Silverio Jang MD, 06/19/2024 10:59 AM Narrative 06/19/2024 11:00 AM TREATING INSPECTOR [place] [id number] [facility] [place] [address] Procedure(s): XR CHEST PORTABLE Date of service: 06/19/2024 10:36 AM Provided clinical information: 34 years, Male, chest pain Procedure and materials: AP portable Comparison studies: None. FINDINGS: Cardiac silhouette is within normal limits. The lungs expanded clear of any consolidations. No effusions. Procedure Note Silverio Jang MD - 06/19/2024 [place] [address] [place] [address] Procedure(s): XR CHEST PORTABLE Date of service: 06/19/2024 10:36 AM Provided clinical information: 34 years, Male, chest pain Procedure and materials: AP portable Comparison studies: None. FINDINGS: Cardiac silhouette is within normal limits. The lungs expandedclear of any consolidations. No effusions. IMPRESSION: No acute cardiopulmonary abnormality. Ordered By: DOUGLAS REVELES Interpreted By: Silverio Jang MD, 06/19/2024 10:59 AM Douglas Reveles MD GENERAL IMAGING Final Result * (ABNORMAL) COMPREHENSIVE METABOLIC PANEL (06/19/2024 9:51 AM TREATING INSPECTOR) GLUCOSE 101(H) 70 - 99 MG/DL 06/19/2024 10:11 AM [facility] BUN 19(H) 7 - 18 MG/DL 06/19/2024 10:11 AM [facility] CREATININE S/P/B 1.06 0.7 - 1.3 MG/DL 06/19/2024 10:11 AM [facility] SODIUM S/P/B 137 136 - 145 MMOL/L 06/19/2024 10:11 AM [facility] POTASSIUM S/P/B 4.5 3.5 - 5.1 MMOL/L 06/19/2024 10:11 AM [facility] CHLORIDE S/P/B 103 100 - 108 MMOL/L 06/19/2024 10:11 AM [facility] CO2 25.2 21 - 32 MMOL/L 06/19/2024 10:11 AM [facility] CALCIUM S/P/B 9.2 8.5 - 10.1 MG/DL 06/19/2024 10:11 AM [facility] BILIRUBIN TOTAL S/P/B 0.4 0.2 - 1.2 MG/DL 06/19/2024 10:11 AM [facility] TOTAL PROTEIN S/P/B 7.1 6.4 - 8.2 G/DL 06/19/2024 10:11 AM [facility] ALBUMIN S/P/B 4.1 3.4 - 5.0 G/DL 06/19/2024 10:11 AM [facility] AST 26 15 - 37 U/L 06/19/2024 10:11 AM [facility] ALT 47 16 - 60 U/L 06/19/2024 10:11 AM [facility] ALKALINE PHOSPHATASE S/P/B 90 50 - 136 U/L 06/19/2024 10:11 AM [facility] ANION GAP 8.8 5 - 15 MMOL/L 06/19/2024 10:11 AM [facility] BUN CREATININE RATIO 17.9 6 - 26 06/19/2024 10:11 AM [facility] A/G RATIO 1.4 1.0 - 2.0 RATIO 06/19/2024 10:11 AM [facility] GFR ESTIMATE >90 >90 ML/MIN/1.7 3 M2 06/19/2024 10:11 AM [facility] Comment: NOTE: eGFR is not calculated for patients <18 years of age. This is an estimated GFR calculation using the new CKD EPI creatinine equation without race and so does not require a correction factor for race. This estimated GFR should not be used for calculating drug doses. 06/19/2024 9:51 AM TREATING INSPECTOR us Douglas Reveles MD LABORATORY Final Result [facility] [address] [place] [id number], * (ABNORMAL) CBC W/DIFF AUTOMATED (06/19/2024 9:51 AM TREATING INSPECTOR) WBC 6.93 4.4 - 11.0 x10'3/uL 06/19/2024 9:57 AM [facility] RBC 4.95 4.50 - 5.90 x10'6/uL 06/19/2024 9:57 AM [facility] HGB 14.9 14.0 - 17.5 G/DL 06/19/2024 9:57 AM [facility] HCT 43.0 41.5 - 50.4 % 06/19/2024 9:57 AM [facility] MCV 86.9 80.0 - 96.0 FL 06/19/2024 9:57 AM [facility] MCH 30.1 26.5 - 31.4 PG 06/19/2024 9:57 AM [facility] MCHC 34.7 31.9 - 34.8 G/DL 06/19/2024 9:57 AM [facility] RDW 11.8(L) 12.3 - 14.3 % 06/19/2024 9:57 AM [facility] PLT 253 151 - 353 x10'3/uL 06/19/2024 9:57 AM [facility] MPV 9.0(L) 9.7 - 11.9 FL 06/19/2024 9:57 AM [facility] RBC MORPHOLOGY NORMAL 06/19/2024 9:57 AM [facility] PLT MORPH. NORMAL 06/19/2024 9:57 AM [facility] WBC MORPHOLOGY NORMAL 06/19/2024 9:57 AM [facility] LYMPHOCYTES % 21.9 15.8 - 45.0 % 06/19/2024 9:57 AM [facility] NEUTROPHILS % 68.6 42.1 - 71.9 % 06/19/2024 9:57 AM [facility] MONOCYTES % 6.9 5.7 - 12.5 % 06/19/2024 9:57 AM [facility] EOSINOPHILS 1.6 0.0 - 5.6 % 06/19/2024 9:57 AM [facility] BASOPHILS 0.7 0.0 - 1.3 % 06/19/2024 9:57 AM [facility] ABS. NEUTROPHILS 4.75 1.40 - 6.00 x10'3/uL 06/19/2024 9:57 AM [facility] IMMATURE GRANS % 0.3 0.0 - 0.5 % 06/19/2024 9:57 AM [facility] ABS. LYMPHOCYTES 1.52 0.80 - 4.70 x10'3/uL 06/19/2024 9:57 AM [facility] 06/19/2024 9:51 AM TREATING INSPECTOR us Douglas Reveles MD LABORATORY Final Result Performing Organization Address [facility]/ZIP Co de Phone Number [facility] [address] [place] [address], [place] [phone] * TROPONIN, QUANT (06/19/2024 9:51 AM TREATING INSPECTOR) TROPONIN I HIGH SENSITIVITY 5 0 - 75 ng/L 06/19/2024 10:14 AM TREATING INSPECTOR [facility] Comment: HIGH DOSES OF BIOTIN, TROPONIN-SPECIFIC AUTOANTIBODIES, AND ANTIBODY THERAPY CONTAINING HAMA MAY INTERFERE WITH THIS TEST RESULT. CORRELATION TO CLINICAL HISTORY AND PRESENTATION RECOMMENDED. 06/19/2024 9:51 AM TREATING INSPECTOR us Douglas Reveles MD LABORATORY Final Result Performing Organization Address [facility] Co de Phone Number [facility] [address] [place] [address], [place] [phone] * LIPASE (06/19/2024 9:51 AM TREATING INSPECTOR) Pathologist [facility] LIPASE 34 16 - 77 UNITS/L 06/19/2024 10:11 AM TREATING INSPECTOR [facility] 06/19/2024 9:51 AM TREATING INSPECTOR us Douglas Reveles MD LABORATORY Final Result Performing Organization Address City/[facility]/ZIP Co de Phone Number [facility] [address] [place] [address], [place] [phone] * ECG 12 lead (06/19/2024 9:46 AM TREATING INSPECTOR) 06/19/2024 9:46 AM TREATING INSPECTOR Narrative 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: : 1990 Requested By: DOUGLAS REVELES Order Number: [id number] Reading MD: Tony Goldstein Measurements Intervals [place] Rate: 60 P: -51 CT: 170 QRS: 80 QRSD: 95 T: 21 QT: 373 QTc: 373 Interpretive Statements ECTOPIC ATRIAL RHYTHM INCOMPLETE RIGHT BUNDLE BRANCH BLOCK [90+ ms QRS DURATION, TERMINAL R IN V1/V2, 40+ ms S IN I/aVL/V4/V5/V6] ABNORMAL RHYTHM ECG No previous ECG available for comparison TING INSPECTOR Procedure Note Tony Goldstein MD - 06/20/2024 [facility] Test Date: 2024-06-19 Pat Name: ALINA IBRAHIM Department: 85 Room: [place] [address] Gender: Male Development And Planning Engineer: : [id number] Requested By: DOUGLAS REVELES Order Number: [id number] Reading MD: Tony Goldstein Measurements Intervals [place] Rate: 60 P: -51 CT: 170 QRS: 80 QRSD: 95 T: 21 QT: 373 QTc: 373 Interpretive Statements ECTOPIC ATRIAL RHYTHM INCOMPLETE RIGHT BUNDLE BRANCH BLOCK [90+ ms QRS DURATION, TERMINAL RIN V1/V2, 40+ ms S IN I/aVL/V4/V5/V6] ABNORMAL RHYTHM ECG No previous ECG available for comparison TING INSPECTOR us Douglas Reveles MD ECG ORDERABLES Final Result [facility] RAD from Last 3 Months Insurance [employer] Care Teams Textile Pin Worker Relationship Specialty Start Date End Date Wu Soares MD [address] [address] PCP - General FAMILY PRACTICE 04/28/20
--- OUTSIDE RECORDS SUMMARY | 2024-07-11 08:12 | XMS_ITS | Encounter Summary ---
Author Organization [facility] Address [address] [place] [address] Care Team Providers Care Mass Communications Instructor Name Role Phone Wu Soares MD Primary Care Provider [phone] Reason for Visit * Reason Onset Date Comments Information 07/10/2024 Encounter Details Date Type Department Care Team (Late st Contact Info) Description 07/10/2024 Telephone [facility] Medical Group General Surgery [address], [address] [place] [address] Jaylin Lund MD [address] [place] [address] Information Social History Tobacco Use Types Packs/Day Years Used Date Smoking Tobacco: Former Smokeless Tobacco: Never Alcohol Use Standard Drinks/Week Comments Yes 0 (1 standard drink = 0.6 oz pur e alcohol) socially PHQ-2 Answer Date Recorded Patient Health Questionnaire-2 Score 0 05/26/2024 Sex and Gender Information Value Date Recorded Sex Assigned at Male 05/26/2024 9:20 AM BEATER ROOM HELPER Legal Sex Male 7:46 PM CDT Gender Identity Male 05/26/2024 9:31 AM BEATER ROOM HELPER Sexual Orientation Straight 05/26/2024 9: 31 AM BEATER ROOM HELPER documented as of this encounter Progress Notes * Adiel Paiz - 07/10/2024 1:38 PM CDT Lvm for pt to call and reschedule /[address] Palomino doesn't treat the issue pt is being seen for, therefore he needs to be scheduled with Dr Lund documented in this encounter Plan of Treatment Upcoming Encounters Date Type Department Care Team (Late st Contact Info) Description 08/12/2024 4:20 PM CDT Office Visit [facility] General Surgery [facility] [address] [facility], [address] [place] [phone] Jaylin Lund MD [address] [facility] [address] [place], [place] [phone] 08/25/2024 2:30 PM CDT Appointment [facility] Cardiopulmonary Services [address] [place] [address] Wu Soares MD [address] [facility] [address] [place] [address] 12/17/2024 3:40 PM CDT Office Visit [facility] Internal Medicine [facility] [address] [place] [address] Wu Soares MD [address] [facility] [address] [place] [address] documented as of this encounter Visit Diagnoses Not on filedocumented in this encounter Additional Health Concerns Assessment Noted Time PHQ-9 Depression Total Score: 3 05/26/19 25 9:34 AM BEATER ROOM HELPER documented as of this encounter Care Teams Mass Communications Instructor Relationship Specialty Start Date End Date Wu Soares MD [address] [place] [address] [address] [place] [address] PCP - General FAMILY PRACTICE 04/28/20 documented as of this encounter
--- NOTE | 2024-07-11 08:14 | ED_ITS ---
HPI - General Adult General Chief complaint: Extremity Injury, Upper Stated complaint: swelling to right thumb/painful Time Seen by Provider: 07/11/24 08:14 Source: patient Mode of arrival: ambulatory Limitations: no limitations History of Present Illness HPI narrative: 34-year-old male patient presents to [facility] with complaints of right thumb pain and swelling. Patient states he lacerated his thumb and received stitches to the thumb area on 06/29. Patient states he was doing something with his vehicle yesterday and hit it on a bar. Patient states it started swelling up and having drainage to the thumb area at and the laceration area yesterday. Denies fevers body aches or chills. Patient states he has been taking Tylenol and ibuprofen for the pain. Patient was scheduled to have stitches removed on Saturday. Related Data Home Medications ?Medication ?Instructions ?Recorded ?Confirmed ?Last Taken ?Type albuterol sulfate 90 mcg/actuation 2 puff inhalation PRN PRN 10/08/20 03/31/21 Unknown History aerosol inhaler (Ventolin HFA) Shortness Of Breath Or Wheezing budesonide 180 mcg/actuation inhalation 07/11/24 Unknown History breath activated powder inhaler (Pulmicort Flexhaler) Allergies Allergy/AdvReac Type Severity Reaction Status Date / Time No Known Allergies Allergy Verified 07/11/24 08:20 Review of Systems Review of Systems: CONSTITUTIONAL: Denies fever, chills, or sweats. EYES: Denies visual changes, redness, or discharge. ENT: Denies rhinorrhea, congestion, sore throat, or otalgia. CARDIOVASCULAR: Denies chest pain, palpitations, or edema. RESPIRATORY: Denies cough or dyspnea. GASTROINTESTINAL: Denies abdominal pain, nausea, vomiting, or diarrhea. GENITOURINARY: Denies dysuria or hematuria. SKIN: Denies rash or itching. MUSCULOSKELETAL: Denies back pain, Positive right thumb joint pain, swelling and redness.. NEUROLOGIC: Denies headache, numbness, or weakness. PSYCHIATRIC: Denies anxiety or depression. 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 There is no relevant family history pertinent to the presenting complaint. Exam Narrative: GENERAL: Well-appearing, well-nourished, and in no acute distress. HEAD: Normocephalic, atraumatic. EYES: PERRLA and EOMI. ENT: Nares clear, no rhinorrhea or epistaxis. Mucous membranes moist. NECK: Supple. No lymphadenopathy CHEST: Clear to auscultation. No respiratory distress. HEART: Regular rate and rhythm. No murmur heard. Normal peripheral pulses. ABDOMEN: Soft, nontender, nondistended, normal active bowel sounds. EXTREMITIES: The R Thumb at the base is without obvious asymmetry or deformity when compared to the L hand. significant swelling, erythema, noted to the base of the right thumb and warmth and erythema noted around the intact sutures. There is some yellow drainage noted from the intact suture laceration area.. Normal cascade of fingers , the right thumb he is unable to bend at the PIP joint due to swelling and pain. Normal flexion and extension of fingers. Pulses and cap refill. SKIN: Warm, dry, no rash. NEURO: No focal deficits. Alert and oriented x3. Course Course Level of Care: Express Care Visit Reevaluation(s) Reevaluation #1: re-evaluated patient notified him that the x-ray is negative for any osteomyelitis or evidence of a joint infection. Discussed with him this is most likely a cellulitis infection and we will discharge him home with 2 types of antibiotics and antibiotic ointment. The sutures were removed and the wound was cleaned with wound sweeper cleaner industrial. antibiotic ointment and a bandage was applied. Discussed with patient's very important to clean the wound at least twice a day and take his medications however if the symptoms get worse or the redness goes outside of the line that was marked for him today highly recommend that he go to the ER for further evaluation and treatment. Patient verbalized understanding denies any other questions or concerns at this time. Date: 07/11/24 Time: 09:18 Vital Signs Vital signs: Vital Signs Temperature 36.6 C 07/11/24 08:20 Pulse Rate 81 07/11/24 08:20 Respiratory Rate 18 07/11/24 08:20 Blood Pressure 145/76 H 07/11/24 08:20 Pulse Oximetry 97 07/11/24 08:20 Oxygen Delivery Room Air 07/11/24 08:20 Temperature 36.6 C 07/11/24 08:20 Pulse Rate 81 07/11/24 08:20 Respiratory Rate 18 07/11/24 08:20 Blood Pressure 145/76 H 07/11/24 08:20 Pulse Oximetry 97 07/11/24 08:20 Oxygen Delivery Room Air 07/11/24 08:20 vital signs reviewed. The patient has been informed that they may have pre-hypertension or Hypertension based on a BP reading in the department. I recommend that the patient call the primary care provider listed on their discharge instructions or a physician of their choice this week to arrange follow up for further evaluation of possible pre-hypertension or Hypertension Procedures Other Procedure Procedure 1: Other Procedure: The wound to the right thumb was cleaned with wound sweeper cleaner industrial and alcohol. Five sutures were removed from the thumb with a suture removal kit. The wound was then cleaned again with wound sweeper cleaner industrial and patted dry. Antibiotic ointment was applied and covered with nonadhesive dressing wrapped with Coban. Patient tolerated procedure well. Medical Decision Making MDM Narrative Medical decision making narrative: Plan of care for patient is to x-ray the thumb to assess if there is any evidence of an infection in the joint space. If this is negative most likely will remove the sutures clean the area and place patient on antibiotics and have him follow-up with his primary doctor. Patient is aware the plan of care at this time Differential Diagnosis Differential Diagnosis: Differential diagnosis: Paronychia, felon, cellulitis, flexor tenosynovitis, mallet finger, boutonniere deformity, flexor tendons, dislocated digits, unstable fracture, unstable ligamentous injury, closed space infection, carpal tunnel syndrome, contusion. Vital Signs Vital Signs: Vital Signs Temperature 36.6 C 07/11/24 08:20 Pulse Rate 81 07/11/24 08:20 Respiratory Rate 18 07/11/24 08:20 Blood Pressure 145/76 H 07/11/24 08:20 Pulse Oximetry 97 07/11/24 08:20 Oxygen Delivery Room Air 07/11/24 08:20 Temperature 36.6 C 07/11/24 08:20 Pulse Rate 81 07/11/24 08:20 Respiratory Rate 18 07/11/24 08:20 Blood Pressure 145/76 H 07/11/24 08:20 Pulse Oximetry 97 07/11/24 08:20 Oxygen Delivery Room Air 07/11/24 08:20 Imaging Data Radiologist's impression: [address] [address] XRay Report Signed Patient: Bryce Chaney : 1990 MR#: [id number] Age: 34 Acct:[id number] Loc: [facility] ADM Date: 07/11/24Attending Dr: Ordering Physician: Adamaris Kapadia [employer] RE[employer] Date of Service: 07/11/24 Procedure(s): XR finger 1st RT min 2V Accession Number(s): [id number] cc: Rodger, Wu Escalante MD; Adamaris Kapadia [employer] RE[employer]ER~ EXAMINATION: XR finger 1st RT min 2V DATE: 07/11/2024 08:37 INDICATION: Right thumb infection. TECHNIQUE: 4 views of right thumb were obtained. COMPARISON: None. FINDINGS: Alignment is normal. No fracture. Joint spaces are normal. IMPRESSION: 1. No evidence of osteomyelitis. Reviewed, dictated and finalized at location A. Discharge Plan Discharge Clinical Impression: Cellulitis of right thumb Patient Disposition: Home, Self-Care Condition: Stable Instructions: Antibiotic Form, Cellulitis (ED) Additional Instructions: Take the prescribed antibiotic medicine you are given as directed until it is gone. Take it even if you feel better. It treats the infection and stops it from returning. Not taking all the medicine can make future infections hard to treat. Keep the infected area clean. When possible, raise the infected area above the level of your heart. This helps keep swelling down. May take Tylenol ibuprofen as needed for pain Take your temperature once a day for a week to monitor for fevers. If you do spike a fever please call your doctor right away. Wash your hands often to prevent spreading the infection. In the future, wash your hands before and after you touch cuts, scratches, or bandages. This will help prevent infection. Please call your doctor today and be scheduled for follow-up appointments in regards to being evaluated for vascular disease. When to call your healthcare provider Call your healthcare provider immediately if you have any of the following: Difficulty or pain when moving the joints above or below the infected area Discharge or pus draining from the area Fever of 100.4?F (38?C) or higher, or as directed by your healthcare provider Pain that gets worse in or around the infected Redness that gets worse in or around the infected area, particularly if the area of redness expands to a wider area Shaking chills Swelling of the infected area Vomiting Patient Language: Citizen Of [place] Prescriptions: New doxycycline hyclate 100 mg capsule 100 mg PO BID 7 Days Qty: 14 0RF amoxicillin 875 mg tablet 875 mg PO Q12H 7 Days Qty: 14 0RF mupirocin [Centany] 2 % ointment 1 applic topical BID Qty: 22 0RF No Action albuterol sulfate [Ventolin HFA] 90 mcg/actuation HFA aerosol inhaler 2 puff INHALATION PRN PRN (Reason: Shortness Of Breath Or Wheezing) Pulmicort Flexhaler 180 mcg/actuation aerosol powdr breath activated INHALATION Follow-up/Referrals: Rodger,Wu Escalante MD [Primary Care Provider] - Time of Disposition: 09:07
[2024-07-11 08:20] VITALS: BP 145/76; PULSE 81; RESP 18; TEMP 36.6; O2SAT 97
[2024-07-11] MEDS: IBUPROFEN 400 MG TABLET 800 MG PO (08:40)
== END 2024-07-11 09:16 | disposition home or self-care (01) ==
PROVIDERS: Emergency Provider Nurse Practitioner Family; PCP Family Medicine Sports Medicine
DX: T81.49XA Infection following a procedure, other surgical site, initial encounter (principal); L03.011 Cellulitis of right finger; F17.210 Nicotine dependence, cigarettes, uncomplicated; F17.290 Nicotine dependence, other tobacco product, uncomplicated; J45.909 Unspecified asthma, uncomplicated
CPT/HCPCS: 73140; 87070; 87075; 87181; 87205; 99213; A9270; G0463

== ENCOUNTER 2024-08-10 08:16 | Emergency (ER) | payer OTHER, SELFPAY ==
--- OUTSIDE RECORDS SUMMARY | 2024-08-10 08:21 | XMS_ITS | Clinical Summary ---
Author Organization [facility] Address [address] [place] [address] Care Team Providers Care Applications Support Engineer Name Role Phone Wu Soares MD Primary Care Provider Allergies Active Allergy Reactions Criticality Noted Date Comments Sophia Swelling 05/10/2022 Medications ondansetron (ZOFRAN-ODT) 4 MG disintegrating tablet Take 1 tablet (4 mg total) by mouth every 8 (eight) hours as needed for Nausea. 20 tablet 06/20/19 25 Active budesonide-formote rol (SYMBICORT) 160-4.5 MCG/ACT inhalerIndications :Mild persistent asthma without complication (HHS/HCC) Inhale 2 puffs into the lungs 2 (two) times daily. 10.2 g 1 08/07/19 25 Active albuterol (PROVENTIL) (2.5 MG/3ML) 0.083% nebulizer solutionIndication s:Mild persistent asthma without complication (HHS/HCC) INHALE 3 ML BY NEBULIZATION EVERY 6 HOURS NEEDED FOR WHEEZING OR SHORTNESS OF BREATH 300 mL 1 08/07/19 25 Active albuterol sulfate HFA 108 (90 Base) MCG/ACT inhalerIndications :Mild persistent asthma without complication (HHS/HCC) TAKE 2 PUFFS BY MOUTH EVERY 6 HOURS NEEDED FOR WHEEZE OR SHORTNESS OF BREATH 18 g 2 08/07/19 25 Active albuterol (PROVENTIL) (2.5 MG/3ML) 0.083% nebulizer solutionIndication s:Mild persistent asthma without complication (HHS/HCC) INHALE 3 ML BY NEBULIZATION EVERY 6 HOURS NEEDED FOR WHEEZING OR SHORTNESS OF BREATH 300 mL 1 04/29/19 25 04/24/2 025 Discontin ued(Reord er) albuterol sulfate HFA 108 (90 Base) MCG/ACT inhalerIndications :Mild persistent asthma without complication (HHS/HCC) TAKE 2 PUFFS BY MOUTH EVERY 6 HOURS NEEDED FOR WHEEZE OR SHORTNESS OF BREATH 18 g 2 05/26/19 25 025 Discontin ued(Reord er) budesonide-formote rol (SYMBICORT) 160-4.5 MCG/ACT inhalerIndications :Mild persistent asthma without complication (HHS/HCC) Inhale 2 puffs into the lungs 2 (two) times daily. 10.2 g 1 05/26/19 25 025 Discontin ued(Reord er) Active Problems Problem Noted Date Diagnosed Date Mild persistent asthma without complication (HHS /HCC) 07/28/2020 Seasonal allergies 07/28/2020 Encounters Date Type Department Care Team Description 07/11/2024 Scan [employer] INFO SRVCS Scanned, Doc [employer] Image (SCAN) 07/10/2024 Telephone [facility] General Surgery [address], [address] [place] [address] Jaylin Lund MD Information 07/02/2024 2:40 PM CDT Office Visit [facility] Family & Internal Medicine [address] [address] Wu Soares MD ER F/U (Abdominal pain ) 07/02/2024 Travel 06/19/2024 9:30 AM FLIGHT ENGINEER HELIC[employer] - 06/19/2024 1:53 PM [facility] Emergency [facility] Emergency Room [address] [place] [address] Gregory Reveles MD Abdominal Pain Discharge Disposition: Home or Self Care (Routine Discharge) 06/19/2024 Travel 06/16/2024 3:40 PM FLIGHT ENGINEER HELICOPTER Office Visit [facility] Family & Internal Medicine [address] [address] Wu Soares MD Follow Up; Asthma; Breathing Problem (Pt states it hurts when he takes deep breath ); Chest Pain (Pt states he gets chest pain right under her ribs ) 06/16/2024 Travel 05/26/2024 9:20 AM FLIGHT ENGINEER HELICOPTER Office Visit [facility] Medical [facility] Family & Internal Medicine [address] [address] Franklin Biswas MD Asthma (Follow up out of inhaler and having SOB has albuterol lois pt has asthma) 05/26/2024 Travel from Last 3 Months Immunizations Immunization Administration Dates Next Due Tdap (Adacel) 09/24/2016 [...] Sex Assigned at Male 05/26/2024 9:20 AM FLIGHT ENGINEER HELICOPTER Legal Sex Male 7:46 PM CDT Gender Identity Male 05/26/2024 9:31 AM FLIGHT ENGINEER HELICOPTER Sexual Orientation Straight 05/26/2024 9: 31 AM FLIGHT ENGINEER HELICOPTER Last Filed Vital Signs Vital Sign Reading [...] Description 08/12/2024 4:20 PM CDT Office Visit [facility] General Surgery - [place] [address] [facility], [address] [place] [address] Jaylin Lund MD [address] [facility] [address] [place], [place] [phone] 08/25/2024 2:30 PM CDT Appointment [facility] Cardiopulmonary Services [address] [place], [place] [phone] Wu Soares MD [address] [facility] [address] [place] [address] 12/17/2024 3:40 PM CDT Office Visit [facility] Family & Internal Medicine [facility] [address] [place] [address] Wu Soares MD [address] [facility] [address] [place] [address] Health Maintenance Due Date Last Done Comments Hepatitis C 2006 Hepatitis B Vaccines (1 of 3 - 19+ 3-dose series) 2007 Pneumococcal Vaccine: Pediat rics (0 to 5 Years) and At-Risk Patients (6 to 49 Years) (1 of 2 - PCV) 2007 Annual Physical 04/28/2021 04/28/2020 COVID-19 Vaccine ( - 2023-2 5 season) 2025 Postponed from 12/14 (Patient Refused) DTaP, Tdap and Td Vaccines ( 2 - Td or Tdap) 09/24/2026 09/24/2016 PHQ-2 (Physician [place]) Completed 05/26/2024 HPV Vaccines Aged Out No [...] Procedure Name Priority Date/Time Associated Diagnosis Comments IMAGE GENERIC 07/11/2024 US ABD LIMITED STAT 06/19/2024 12:46 PM [employer] [address] CT ABD+PEL W CON STAT 06/19/2024 10:5 1 AM FLIGHT ENGINEER HELIC[employer]TER XR CHEST PORTABLE STAT 06/19/2024 10: 50 AM FLIGHT ENGINEER HELICOPTER LIPASE STAT 06/19/2024 9:51 AM FLIGHT ENGINEER HELICOPTER TROPONIN, QUANT STAT 06/19/2024 9:51 AM FLIGHT ENGINEER HELIC[employer]TER COMPREHENSIVE METABOLIC PANEL STAT 06/19/2024 9:51 AM FLIGHT ENGINEER HELICOPTER CBC W/DIFF AUTOMATED STAT 06/19/2024 9:51 AM FLIGHT ENGINEER HELICOPTER ECG 12-LEAD Routine 06/19/2024 9:46 AM FLIGHT ENGINEER HELICOPTER from Last 3 Months Results * IMAGE GENERIC (07/11/2024) Anatomical Region Laterality Modality Other 07/11/2024 us Doc Med Group Scanned SCANNING Final Resu lt * US ABD LIMITED (06/19/2024 12:46 PM FLIGHT ENGINEER HELICOPTER) Anatomical Region Laterality Modality Abdomen Ultrasound 06/19/2024 12:5 5 PM FLIGHT ENGINEER HELICOPTER Impressions 06/19/2024 1:03 PM FLIGHT ENGINEER HELICOPTER IMPRESSION: 1. No sonographic abnormality observed within the right upper quadrant. Referred By: Interpreted By: Rajani Lynn DO, 06/19/2024 12:55 PM Narrative 06/19/2024 1:03 PM FLIGHT ENGINEER HELICOPTER [facility] [address] [facility] [place] [address] EXAMINATION: LIMITED ABDOMINAL ULTRASOUND: RIGHT UPPER QUADRANT. [...] Procedure Note Rajani Lynn MD - 06/19/2024 [facility] [address] [facility] [place] [address] EXAMINATION: LIMITED ABDOMINAL ULTRASOUND: RIGHT UPPER QUADRANT. [...] W IV CON ONLY (06/19/2024 10:51 AM FLIGHT ENGINEER HELICOPTER) Anatomical Region Laterality Modality Abdomen Computed Tomogra phy 06/19/2024 11:0 2 AM FLIGHT ENGINEER HELICOPTER Impressions 06/19/2024 11:07 AM FLIGHT ENGINEER HELICOPTER IMPRESSION: Colonic wall thickening is present in the transverse colon, splenic flexure as well as the sigmoid colon. This can be secondary due to inflammatory or infectious change. 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 Ordered By: GREGORY REVELES Interpreted By: Silverio Jang MD, 06/19/2024 11:02 AM Narrative 06/19/2024 11:07 AM FLIGHT ENGINEER HELICOPTER [facility] [address] [place] [address] Procedure(s): CT ABD+PEL W CON Date of [...] Procedure Note Silverio Jang MD - 06/19/2024 [facility] [address] [place] [address] Procedure(s): CT ABD+PEL W CON Date of [...] Silverio Jang MD, 06/19/2024 11:02 AM Gregory Revlees MD CT Final Result * XR CHEST PORTABLE (06/19/2024 10:50 AM FLIGHT ENGINEER HELICOPTER) Anatomical Region Laterality Modality Chest Radiographic Lesley ging 06/19/2024 10:5 9 AM FLIGHT ENGINEER HELICOPTER Impressions 06/19/2024 11:00 AM FLIGHT ENGINEER HELICOPTER IMPRESSION: No acute cardiopulmonary abnormality. Ordered By: GREGORY REVELES Interpreted By: Silverio Jang MD, 06/19/2024 10:59 AM Narrative 06/19/2024 11:00 AM FLIGHT ENGINEER HELICOPTER [facility] [address] [facility] [place] [address] Procedure(s): XR CHEST PORTABLE Date of service: 06/19/2024 10:36 AM Provided clinical information: 34 years, Male, chest pain Procedure and materials: AP portable Comparison studies: None. FINDINGS: Cardiac silhouette is within normal limits. The lungs expanded clear of any consolidations. No effusions. Procedure Note Silverio Jang MD - 06/19/2024 [facility] [address] [place] [address] Procedure(s): XR CHEST PORTABLE Date of service: [...] (ABNORMAL) COMPREHENSIVE METABOLIC PANEL (06/19/2024 9:51 AM FLIGHT ENGINEER HELICOPTER) GLUCOSE 101(H) 70 - 99 MG/DL 06/19/2024 10:11 AM [facility] BUN 19(H) 7 - 18 MG/DL 06/19/2024 10:11 AM [facility] CREATININE S/P/B 1.06 0.7 - 1.3 MG/DL 06/19/2024 10:11 AM [facility] SODIUM S/P/B 137 136 - 145 MMOL/L 06/19/2024 10:11 AM [facility] POTASSIUM S/P/B 4.5 3.5 - 5.1 MMOL/L 06/19/2024 10:11 AM [facility] CHLORIDE S/P/B 103 100 - 108 MMOL/L 06/19/2024 10:11 AM [facility] CO2 25.2 21 - 32 MMOL/L 06/19/2024 10:11 AM [facility] CALCIUM S/P/B 9.2 8.5 - 10.1 MG/DL 06/19/2024 10:11 AM FLIGHT ENGINEER HELICOPTER [facility] BILIRUBIN TOTAL S/P/B 0.4 0.2 - 1.2 MG/DL 06/19/2024 10:11 AM [facility] TOTAL PROTEIN S/P/B 7.1 6.4 - 8.2 G/DL 06/19/2024 10:11 AM [facility] ALBUMIN S/P/B 4.1 3.4 - 5.0 G/DL 06/19/2024 10:11 AM [facility] AST 26 15 - 37 U/L 06/19/2024 10:11 AM [facility] ALT 47 16 - 60 U/L 06/19/2024 10:11 AM [facility] ALKALINE PHOSPHATASE S/P/B 90 50 - 136 U/L 06/19/2024 10:11 AM [facility] ANION GAP 8.8 5 - 15 MMOL/L 06/19/2024 10:11 AM [facility] BUN CREATININE RATIO 17.9 6 - 26 06/19/2024 10:11 AM [facility] A/G RATIO 1.4 1.0 - 2.0 RATIO 06/19/2024 10:11 AM [facility] GFR ESTIMATE >90 >90 ML/MIN/1.7 3 M2 06/19/2024 10:11 AM [facility] Comment: NOTE: eGFR is not calculated for patients <18 years of age. This is an estimated GFR calculation using the new CKD EPI creatinine equation without race and so does not require a correction factor for race. This estimated GFR should not be used for calculating drug doses. 06/19/2024 9:51 AM FLIGHT ENGINEER HELICOPTER Gregory Reveles MD LABORATORY Final Result [facility] [address] [place] [address], [place] [phone] * (ABNORMAL) CBC W/DIFF AUTOMATED (06/19/2024 9:51 AM FLIGHT ENGINEER HELICOPTER) [facility] WBC 6.93 4.4 - 11.0 x10'3/uL 06/19/2024 9:57 AM [facility] RBC 4.95 4.50 - 5.90 x10'6/uL 06/19/2024 9:57 AM [facility] HGB 14.9 14.0 - 17.5 G/DL 06/19/2024 9:57 AM [facility] HCT 43.0 41.5 - 50.4 % 06/19/2024 9:57 AM [facility] MCV 86.9 80.0 - 96.0 FL 06/19/2024 9:57 AM [facility] MCH 30.1 26.5 - 31.4 PG 06/19/2024 9:57 AM [facility] MCHC 34.7 31.9 - 34.8 G/DL 06/19/2024 9:57 AM [facility] RDW 11.8(L) 12.3 - 14.3 % 06/19/2024 9:57 AM [facility] PLT 253 151 - 353 x10'3/uL 06/19/2024 9:57 AM [facility] MPV 9.0(L) 9.7 - 11.9 FL 06/19/2024 9:57 AM [facility] RBC MORPHOLOGY NORMAL 06/19/2024 9:57 AM [facility] PLT MORPH. NORMAL 06/19/2024 9:57 AM [facility] WBC MORPHOLOGY NORMAL 06/19/2024 9:57 AM [facility] LYMPHOCYTES % 21.9 15.8 - 45.0 % 06/19/2024 9:57 AM [facility] NEUTROPHILS % 68.6 42.1 - 71.9 % 06/19/2024 9:57 AM [facility] MONOCYTES % 6.9 5.7 - 12.5 % 06/19/2024 9:57 AM [facility] EOSINOPHILS 1.6 0.0 - 5.6 % 06/19/2024 9:57 AM [facility] BASOPHILS 0.7 0.0 - 1.3 % 06/19/2024 9:57 AM [facility] ABS. NEUTROPHILS 4.75 1.40 - 6.00 x10'3/uL 06/19/2024 9:57 AM [facility] IMMATURE GRANS % 0.3 0.0 - 0.5 % 06/19/2024 9:57 AM [facility] ABS. LYMPHOCYTES 1.52 0.80 - 4.70 x10'3/uL 06/19/2024 9:57 AM [facility] 06/19/2024 9:51 AM FLIGHT ENGINEER HELICOPTER Gregory Reveles MD LABORATORY Final Result [facility] [address] [place] [address], * TROPONIN, QUANT (06/19/2024 9:51 AM FLIGHT ENGINEER HELICOPTER) Pathologist [facility] TROPONIN I HIGH SENSITIVITY 5 0 - 75 ng/L 06/19/2024 10:14 AM [facility] Comment: HIGH DOSES OF BIOTIN, TROPONIN-SPECIFIC AUTOANTIBODIES, AND ANTIBODY THERAPY CONTAINING HAMA MAY INTERFERE WITH THIS TEST RESULT. CORRELATION TO CLINICAL HISTORY AND PRESENTATION RECOMMENDED. 06/19/2024 9:51 AM FLIGHT ENGINEER HELICOPTER Gregoyr Reveles MD LABORATORY Final Result Performing Organization Address City/[facility]/ZIP Co de Phone Number [facility] [address] [place] [address], [place] [phone] * LIPASE (06/19/2024 9:51 AM FLIGHT ENGINEER HELICOPTER) LIPASE 34 16 - 77 UNITS/L 06/19/2024 10:11 AM FLIGHT ENGINEER HELICOPTER [facility] 06/19/2024 9:51 AM FLIGHT ENGINEER HELICOPTER Gregory Reveles MD LABORATORY Final Result Performing Organization Address [facility] Co de Phone Number [facility] [address] [place] [address], [place] [phone] * ECG 12 lead (06/19/2024 9:46 AM FLIGHT ENGINEER HELICOPTER) 06/19/2024 9:46 AM FLIGHT ENGINEER HELICOPTER Narrative [facility] ([facility] RAD - 06/20/2024 8:15 AM FLIGHT ENGINEER HELICOPTER [facility] Test Date: 2024-06-19 Pat Name: BRYCE IBRAHIM Department: 85 Room: [place] [address] Gender: 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: : 1990 Requested By: GREGORY REVELES Order Number: [id number] Reading MD: Tony Goldstein Measurements Intervals [place] Rate: 60 P: -51 NH: 170 QRS: 80 QRSD: 95 T: 21 QT: 373 QTc: 373 Interpretive Statements ECTOPIC ATRIAL RHYTHM INCOMPLETE RIGHT BUNDLE BRANCH BLOCK [90+ ms QRS DURATION, TERMINAL RIN V1/V2, 40+ ms S IN I/aVL/V4/V5/V6] ABNORMAL RHYTHM ECG No previous ECG available for comparison HT ENGINEER HELICOPTER us Gregory Reveles MD ECG ORDERABLES Final Result [facility]) RAD from Last 3 Months Insurance [employer] Care Teams Applications Support Engineer Relationship Specialty Start Date End Date Wu Soares MD [address] [place] [phone] PCP - General FAMILY PRACTICE 04/28/20
[2024-08-10 08:23] VITALS: BP 122/76; PULSE 74; RESP 16; TEMP 36.3; O2SAT 99
--- NOTE | 2024-08-10 08:36 | ED.URI ---
HPI - URI/Sore Throat General Chief Complaint: Upper Respiratory Infection Stated Complaint: Flu Like Time Seen by Provider: 08/10/24 08:36 Source: patient Mode of arrival: ambulatory Limitations: no limitations History of Present Illness HPI Narrative: 34 yo M presents with c/o sinus pressure, coughing, fatigue for 4 days. Prior to that he has had congestion, PND, runny nose for 2 wks. Afebrile. Vomited twice today. Also states coughing exacerbating his asthma and has been using inhalers. No wheezing or SOB at this time. All systems reviewed and negative except as noted above. Related Data Home Medications ?Medication ?Instructions ?Recorded ?Confirmed ?Last Taken ?Type albuterol sulfate 90 mcg/actuation 2 puff inhalation PRN PRN 10/08/20 08/10/24 Unknown History aerosol inhaler (Ventolin HFA) Shortness Of Breath Or Wheezing budesonide 180 mcg/actuation inhalation 07/11/24 Unknown History breath activated powder inhaler (Pulmicort Flexhaler) Allergies Allergy/AdvReac Type Severity Reaction Status Date / Time No Known Allergies Allergy Verified 08/10/24 08:24 Review of Systems Review of Systems: CONSTITUTIONAL: Denies fever, chills, or sweats. Reports fatigue. EYES: Denies visual changes, redness, or discharge. ENT: Reports rhinorrhea, congestion, sinus pressure, postnasal drainage, sore throat. Denies otalgia. CARDIOVASCULAR: Denies chest pain, palpitations, or edema. RESPIRATORY: Reports cough. Denies dyspnea. GASTROINTESTINAL: Denies abdominal pain, nausea, vomiting, or diarrhea. GENITOURINARY: Denies dysuria or hematuria. SKIN: Denies rash or itching. MUSCULOSKELETAL: Denies back pain, joint pain, or myalgia. NEUROLOGIC: Denies headache, numbness, or weakness. PSYCHIATRIC: Denies anxiety or depression. All other systems reviewed are negative, except as documented in HPI. 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 There is no relevant family history pertinent to the presenting complaint. Exam Narrative: GENERAL: This is a well-nourished, well-developed patient, ill-appearing but no acute distress HEAD: normocephalic, atraumatic. EYES: PERRL. Sclera clear/white. Vision is grossly intact. EARS: External ears normal, auditory canals clear and without drainage, TMs normal without perforation. Hearing grossly intact. NOSE: External nose normal with purulent nasal drainage, erythema and swelling to bilateral nares. Maxillary sinus tenderness on palpation THROAT: Mucous membranes moist, erythema, postnasal drainage NECK: Neck supple, non-tender without lymphadenopathy, masses or thyromegaly. CARDIOVASCULAR: Regular rate and rhythm without murmurs, gallops, or rubs. RESPIRATORY: Clear to auscultation. Breath sounds equal bilaterally. No wheezes, rales, or rhonchi. SKIN: warm, Dry, intact with no suspicious lesions or rash, good texture and turgor. NEURO: awake, alert, and oriented to person, place and time. There were no obvious focal neurologic abnormalities. EXTREMITIES: No joint tenderness, effusion, or edema noted. Course Course Level of Care: Express Care Visit Vital Signs Vital signs: Vital Signs Temperature 36.3 C L 08/10/24 08:23 Pulse Rate 74 08/10/24 08:23 Respiratory Rate 16 08/10/24 08:23 Blood Pressure 122/76 08/10/24 08:23 Pulse Oximetry 99 08/10/24 08:23 Oxygen Delivery Room Air 08/10/24 08:23 Temperature 36.3 C L 08/10/24 08:23 Pulse Rate 74 08/10/24 08:23 Respiratory Rate 16 08/10/24 08:23 Blood Pressure 122/76 08/10/24 08:23 Pulse Oximetry 99 08/10/24 08:23 Oxygen Delivery Room Air 08/10/24 08:23 Reviewed MDM - URI/Sore Throat MDM Narrative Medical decision making narrative: Negative COVID and influenza testing. No respiratory distress. Will treat patient for bacterial sinusitis due to duration of symptoms and exam findings. Patient is alert, nontoxic. Please be advised this is a medical document. It is intended for [id number]-ycfa communication. It is written in medical language and may contain unfamiliar abbreviations or verbiage. Medical documents are intended to carry relevant information, facts as evident, and the clinical opinion of the practitioner at the time of the encounter. This report may have been done utilizing a voice recognition system. Attempts have been made to correct errors. However, there may be uncorrected grammatical, spelling, and recognition errors present. The file time of this note does not necessarily represent the time of service. Differential Diagnosis Differential diagnosis: Likely upper respiratory infection, sinusitis and viral infection Lab Data Labs: Lab Results 08/10/24 Range/Units 08:31 POC Influenza A Ag Negative (Negative) POC Influenza B Ag Negative (Negative) POC SARS CoV-2 Ag Negative (Negative) Discharge Plan Discharge Clinical Impression: Acute bacterial sinusitis, Asthma exacerbation, mild Patient Disposition: Home Condition: Stable Instructions: Antibiotic Form, Sinusitis (ED) Additional Instructions: Your COVID and influenza test were negative today. take medications as prescribed. Continue inhalers as prescribed by your primary care physician. Purchase [id number] pseudoephedrine and take as directed on packaging. This medication is found by the pharmacy counter. Drink at least 64 oz of water a day. See your doctor if symptoms are not improving. Patient Language: Kazakh Prescriptions: New Pulmicort Flexhaler 180 mcg/actuation aerosol powdr breath activated 2 inh inhalation DAILY Qty: 1 0RF prednisone 20 mg tablet 40 mg PO DAILY 5 Days Qty: 10 0RF fluticasone propionate [Flonase Allergy Relief] 50 mcg/actuation spray,suspension 1 spray intranasal BID Qty: 16 0RF Rx Instructions: administer into each nostril amoxicillin-pot clavulanate 875-125 mg tablet 1 tablet PO Q12H 7 Days Qty: 14 0RF No Action albuterol sulfate [Ventolin HFA] 90 mcg/actuation HFA aerosol inhaler 2 puff INHALATION PRN PRN (Reason: Shortness Of Breath Or Wheezing) Pulmicort Flexhaler 180 mcg/actuation aerosol powdr breath activated INHALATION Follow-up/Referrals: Rodger,Wu Escalante MD [Primary Care Provider] - Stand Alone Forms: Work/School Release IP Time of Disposition: 08:47
[2024-08-10 08:50] LABS: EDCOVIDSCREEN Negative (Negative); EDINFLUASCREEN Negative (Negative); EDINFLUBSCREEN Negative (Negative)
== END 2024-08-10 08:50 | disposition home or self-care (01) ==
PROVIDERS: Emergency Provider Nurse Practitioner Family; PCP Family Medicine Sports Medicine
DX: J01.90 Acute sinusitis, unspecified (principal); J45.901 Unspecified asthma with (acute) exacerbation; Z20.822 Contact with and (suspected) exposure to COVID-19; F17.210 Nicotine dependence, cigarettes, uncomplicated; F17.290 Nicotine dependence, other tobacco product, uncomplicated
CPT/HCPCS: 87426; 87804; 99213; G0463